=== PATIENT | female | born 1975 | race Caucasian/White ===

== ENCOUNTER 2018-02-17 19:27 | Inpatient (IN) ==
[2018-02-17] MEDS ORDERED: Ipratropium/Albuterol Neb 3 ML IH ONE (20:26)
[2018-02-17 20:54] LABS: Basophils % 0.3 %; Eosinophils # 0.4 K/mcL (0.0-0.6); Eosinophils % 3.2 %; Hemoglobin 13.3 g/dL (11.5-15.4); Immature Granulocytes % 0.6 % (0-4); Lymphocytes # 2.1 K/mcL (0.6-4.6); Lymphocytes % 18.5 %; Mean Corpuscular HGB Conc 32.4 g/dL (31.6-35.5); Mean Corpuscular Hemoglobin 29.2 pg (28.0-33.3); Mean Corpuscular Volume 89.9 fL (83.0-100.0); Mean Platelet Volume 10.8 fL (9.4-12.4); Monocytes # 0.8 K/mcL (0.0-1.3); Neutrophils # 7.9 K/mcL (1.6-8.9); Platelet Count 182 K/mcL (140-400); Red Blood Count 4.56 M/mcL (3.82-4.97); Red Cell Distribution Width 15.1 % (11.5-14.5); Segmented Neutrophils % 70.4 %
[2018-02-17] MEDS ORDERED: methylPREDNISolone 125 MG/2 ML VIAL IVP ONE (21:17)
[2018-02-17 21:32] LABS: BUN/Creatinine Ratio 8 (6-26); Blood Urea Nitrogen 7 mg/dL (6-20); Calcium 8.2 mg/dL (8.6-10.3); Carbon Dioxide 13 mEq/L (23-29); Chloride 116 mEq/L (98-107); Glucose 123 mg/dL (70-105); Osmolality,Calculated 285 (280-300); Potassium 4.2 mEq/L (3.5-5.1); Sodium 138 mEq/L (136-145); Troponin I < 0.03 ng/mL (< 0.04); eGFR For African Americans > 60 (> 60); eGFR For Non-African Americans > 60 (> 60)
--- NOTE | 2018-02-17 22:56 | Emergency Department Note ---
Disposition Clinical Impression: Acute exacerbation of chronic obstructive airways disease Chest pain Qualifiers: Chest pain type: unspecified Qualified Code(s): R07.9 - Chest pain, unspecified Disposition: Admitted As Inpatient Condition: Good Referrals: Severino Mario CNP [Primary Care Provider] - Ignacio Chacon CNP [Family Provider] - Forms: ED Satisfaction Letter Time of Disposition: 23:15 SOB HPI - General Chief Complaint: ED Shortness of Breath/Dyspnea Stated Complaint: sob/wheezing Time Seen by Provider: 02/17/18 19:39 Source: patient Limitations: no limitations Nursing Notes Reviewed: Yes Vital Signs Reviewed: Yes - History of Present Illness This is a 42 year-old female with history of HTN, asthma, COPD, and lobectomy secondary to complications of pneumonia in 2000. 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 She presents with dyspnea, which sounds chronic but worse for the past 2-3 days. She reports post-tussive emesis for the past 2 nights, and she is concerned that she might have aspirated last night or the night before. She reports wheezing, minimally productive cough, and central chest pressure for the past 2 days. She's had some chills but no measured fever. She denies leg pain/swelling. Pt Subjective Complaint: shortness of breath Onset (ago): month(s) (2) Context: anxiety Severity: moderate Consistency/Duration: gradually worsening (worse for 2-3 days) Improves with: nothing Worsens with: nothing Known history of: COPD, asthma, recurrent pneumonia Associated symptoms: Reports: cough, wheezing, sputum production. Denies: chest pain, lower extremity pain, palpitations Treatment prior to arrival: bronchodilator, other (2 rounds of antibiotics) Cough Frequency: Continuous - Related Data Allergies Allergy/AdvReac Type Severity Reaction Status Date / Time Cortisone Allergy See Verified 02/17/18 19:32 Comments doxycycline Allergy See Verified 02/17/18 19:32 Comments prednisone Allergy See Verified 02/17/18 19:32 Comments Sulfa (Sulfonamide Allergy See Verified 02/17/18 19:32 Antibiotics) Comments All systems ED: reviewed and negative except as stated. Constitutional: Reports: chills. Denies: fever Cardiovascular: Reports: as per HPI Respiratory: Reports: cough, dyspnea, wheezes Past Medical History - Past Medical History Medical history: Reports: asthma, COPD, hypertension, other Surgical history: Reports: other Psychiatric history: Reports: bipolar - Social History Smoking Status: Former smoker Smokeless Tobacco Status: No Alcohol use: Reports: none Drug use: Reports: none Physical Exam - General Limitations: no limitations General appearance: alert - Head Head exam: atraumatic, normocephalic - Eye Eye exam: Present: normal appearance - Neck Neck exam: Present: normal inspection - Respiratory Respiratory exam: Present: wheezes (scattered). Absent: respiratory distress - Cardiovascular Cardiovascular exam: Present: regular rate, normal rhythm, normal heart sounds - Abdominal Exam Abdominal exam: Present: soft, Non-Tender. Absent: distention - Extremities Exam Extremities exam: Present: normal inspection. Absent: pedal edema, calf tenderness - Neurological Exam Neurological exam: Present: alert, oriented X3. Absent: motor sensory deficit - Psychiatric Psychiatric exam: Present: normal affect, normal mood - Skin Skin exam: Present: warm, dry, intact Course - Reevaluation(s) Reevaluation #1: Discussed test results with patient. She is still feeling dyspneic and reports chest pressure, and she would like to come in for observation. Time: 23:14 - Consultations Consultation #1: Reviewed case with Dr. Hinds, and patient accepted for admission. Time: 23:34 Vital Signs Temperature 98.2 F 02/17/18 19:32 Pulse Rate 101 02/17/18 19:32 Respiratory Rate 24 02/17/18 19:32 Blood Pressure 150/100 02/17/18 19:32 O2 Sat by Pulse Oximetry 97 02/17/18 19:32 Temperature 98.4 F 02/17/18 19:51 Pulse Rate 94 02/17/18 23:16 Respiratory Rate 20 02/17/18 23:16 Blood Pressure 176/95 02/17/18 23:16 O2 Sat by Pulse Oximetry 99 02/17/18 23:16 Oxygen Delivery Oxygen Delivery Room Air Shortness of Breath/Dyspnea - Lab Data Lab results reviewed: Yes I reviewed the patient's lab results. Result diagrams: 02/17/18 20:42 02/17/18 20:42 Lab Results 02/17/18 02/17/18 02/17/18 Range/Units 20:42 20:42 20:42 WBC 11.3 H (4.3-11.1) K/mcL RBC 4.56 (3.82-4.97) M/mcL Hgb 13.3 (11.5-15.4) g/dL Hct 41.0 (35.3-44.9) % MCV 89.9 (83.0-100.0) fL MCH 29.2 (28.0-33.3) pg MCHC 32.4 (31.6-35.5) g/dL RDW 15.1 H (11.5-14.5) % Plt Count 182 (140-400) K/mcL MPV 10.8 (9.4-12.4) fL Immature Gran % 0.6 (0-4) % Seg Neutrophils % 70.4 % Lymphocytes % 18.5 % Monocytes % 7.0 % Eosinophils % 3.2 % Basophils % 0.3 % Neutrophils # 7.9 (1.6-8.9) K/mcL Lymphocytes # 2.1 (0.6-4.6) K/mcL Monocytes # 0.8 (0.0-1.3) K/mcL Eosinophils # 0.4 (0.0-0.6) K/mcL Basophils # 0.0 (0.0-0.2) K/mcL D-Dimer (0-500) ng/mLFEU Sodium 138 (136-145) mEq/L Potassium 4.2 (3.5-5.1) mEq/L Chloride 116 H (98-107) mEq/L Carbon Dioxide 13 L (23-29) mEq/L BUN 7 (6-20) mg/dL Creatinine 0.85 (0.60-1.20) mg/dL Est GFR ( Amer) > 60 (> 60) Est GFR (Non-Af Amer) > 60 (> 60) BUN/Creatinine Ratio 8 (6-26) Glucose 123 H (70-105) mg/dL Calculated Osmolality 285 (280-300) Calcium 8.2 L (8.6-10.3) mg/dL Troponin I < 0.03 (< 0.04) ng/mL B-Natriuretic Peptide 12 (Less than 100) pg/mL 02/17/18 Range/Units 20:42 WBC (4.3-11.1) K/mcL RBC (3.82-4.97) M/mcL Hgb (11.5-15.4) g/dL Hct (35.3-44.9) % MCV (83.0-100.0) fL MCH (28.0-33.3) pg MCHC (31.6-35.5) g/dL RDW (11.5-14.5) % Plt Count (140-400) K/mcL MPV (9.4-12.4) fL Immature Gran % (0-4) % Seg Neutrophils % % Lymphocytes % % Monocytes % % Eosinophils % % Basophils % % Neutrophils # (1.6-8.9) K/mcL Lymphocytes # (0.6-4.6) K/mcL Monocytes # (0.0-1.3) K/mcL Eosinophils # (0.0-0.6) K/mcL Basophils # (0.0-0.2) K/mcL D-Dimer 226 (0-500) ng/mLFEU Sodium (136-145) mEq/L Potassium (3.5-5.1) mEq/L Chloride (98-107) mEq/L Carbon Dioxide (23-29) mEq/L BUN (6-20) mg/dL Creatinine (0.60-1.20) mg/dL Est GFR ( Amer) (> 60) Est GFR (Non-Af Amer) (> 60) BUN/Creatinine Ratio (6-26) Glucose (70-105) mg/dL Calculated Osmolality (280-300) Calcium (8.6-10.3) mg/dL Troponin I (< 0.04) ng/mL B-Natriuretic Peptide (Less than 100) pg/mL - Radiology Data Radiology results reviewed: Yes I reviewed the patient's radiology results. XR/XR chest 1V portable IMPRESSION: Prominent reticular markings throughout the lungs are nonspecific and can be seen in setting of mild vascular congestion, atypical pneumonitis and/or interstitial change. No focal airspace consolidation. - EKG Data EKG attestation: Yes I reviewed and interpreted this EKG. EKG shows normal: Reports: axis, intervals, QRS complexes, ST-T waves Rate: Reports: tachycardia When compared to previous EKG there are: previous EKG unavailable Interpretation: Reports: other (no significant abnormalities)
[2018-02-17] MEDS ORDERED: Aspirin 325 MG TABLET PO ONE (23:14)
[2018-02-18] MEDS ORDERED: Ipratropium/Albuterol Neb 3 ML IH ONE (02:04)
[2018-02-18] MEDS ORDERED: Naloxone 0.4 MG/ML INJ IVP PRN (02:18)
[2018-02-18] MEDS ORDERED: Acetaminophen 325 MG TABLET PO PRN (02:18)
[2018-02-18] MEDS ORDERED: Nitroglycerin 0.4 MG TAB.SUBL SL PRN (03:19)
[2018-02-18] MEDS ORDERED: Furosemide 20 MG/2 ML VIAL IVP ONE (03:22)
[2018-02-18] MEDS ORDERED: Azithromycin 250 MG TABLET PO ONE (03:35)
--- NOTE | 2018-02-18 03:48 | Internal Med History&Physical ---
<Josi Trejo - Last Filed: 02/18/18 03:40> Date of Encounter: 02/18/18 Time of Encounter: 01:30 Internal Medicine - H&P: HPI Chief complaint: SOB Admitted From: Home Plans for Post Hospital Care: Home History of present illness: Ms. Amin is a 42 year old female with a past medical history of asthma, COPD, lobectomy secondary to pneumonia, and hypertension who presented to the ED with shortness of breath. Patient states that shortness of breath began 2 days ago with associated productive cough with green sputum. Admits to associated hemoptysis and chest pain. Patient denies travel outside of [place] or visiting a jail. Chest pain is described as sharp with each breath and achy and she is not breathing. She states that the chest pain is constant does not radiate to her neck or arm but describes it as a chest pressure. Denies associated nausea, vomiting, or sweating. She has noticed increased swelling in her feet and hands over the last 2 weeks. She was last hospitalized in September for pneumonia. Admits to chills and diffuse weakness. Denies fever, abdominal pain , diarrhea, rash. Upon admission to the ED, patient was tachycardic 101, tachypnea 24, and hypertensive 150/100. patient's initial white blood cell count was 11.3, BNP 12 , d-dimer 226, Troponin < 0.03. Chest x-ray shows prominent reticular markings which can be seen in mild vascular congestion, atypical pneumonitis, or interstitial changes. Patient was given DuoNeb 1, Solu-Medrol and Aspirin in the ED. Patient was admitted to the floor for COPD exacerbation. Past Med Surg Social Fam HX - Past Medical History Medical history: asthma, COPD, hypertension, other Psychiatric history: anxiety, bipolar, depression, panic disorder, PTSD - Past Surgical History Surgical History: other Additional surgical history: 2000- Lobectomy, R. ovary removal, tubal - Social History Smoking Status: Former smoker Smokeless Tobacco Status: No Alcohol use: none Drug use: none - Family History Father Living Status: Still Living Hx Family Cancer: Yes (Breast Ca.) Internal Medicine - H&P: Meds Alprazolam XR [Xanax Xr] 2 mg PO HS 02/18/18 [History] Benztropine [Cogentin] 1 mg PO HS 02/18/18 [History] Esomeprazole Magnesium [Nexium] 40 mg PO HS 02/18/18 [History] FLUoxetine HCl [Fluoxetine HCl] 30 mg PO HS 02/18/18 [History] Ferrous Sulfate [Iron] 325 mg PO HS 02/18/18 [History] Meloxicam [Mobic] 15 mg PO HS 02/18/18 [History] Quetiapine Fumarate [Quetiapine Fumarate ER] 800 mg PO HS 02/18/18 [History] Spironolactone [Aldactone] 50 mg PO HS 02/18/18 [History] Sucralfate [Carafate] 1 gm PO HS 02/18/18 [History] Topiramate [Topamax] 200 mg PO HS 02/18/18 [History] raNITIdine HCl [Ranitidine HCl] 300 mg PO HS 02/18/18 [History] 3 Allergy/AdvReac Type Severity Reaction Status Date / Time Cortisone Allergy See Verified 02/17/18 19:32 Comments doxycycline Allergy See Verified 02/17/18 19:32 Comments prednisone Allergy See Verified 02/17/18 19:32 Comments Sulfa (Sulfonamide Allergy See Verified 02/17/18 19:32 Antibiotics) Comments All Systems PM: A 10-system review of systems was performed and is negative for pertinent findings except as documented above in the HPI. - Constitutional Vitals: Temp Pulse Resp BP Pulse Ox 98.4 F 98 21 163/97 98 02/18/18 00:33 02/18/18 00:33 02/18/18 02:16 02/18/18 00:33 02/18/18 02:16 Exam: Constitutional: Alert, in mild acute resp distress Head: Normocephalic, atraumatic Heart: Normal, regular rate and rhythm, no murmurs Lungs: 2:1 expiratory ratio, + wheezing with auscultation and audibly, using accessory respiratory muscles Abdomen: Soft, nondistended, nontender, bowel sounds present and normal, no guarding or rigidity. Extremities: No edema in her UE or LE, No clubbing, radial pulse +2/4, capillary refill <2sec. Skin: Skin warm and dry, no lesions, no rashes, no jaundice Neurologic: Cranial nerves II through XII grossly intact, strength 5/5 in all extremitites Psych: Cooperative with exam, good eye contact, cognitive function intact, speech clear, thought process logical, and goal directed Internal Med - H&P Results - Labs CBC & Chem 7: 02/17/18 20:42 02/17/18 20:42 - Assessment and plan (1) Acute exacerbation of chronic obstructive airways disease Current Visit: Yes Status: Acute Assessment and plan: Progressive worsening of SOB with associated productive cough. Possible acute bronchitis causing exacerbation. Lasix attempted once to see if fluid overload was contributing as patient admits to new onset hand and feet swelling. Plan: - Azithromycin 1/5 days - continue oxygen support as needed - DuoNebs Q2H prn and Q4H fiordaliza - Solu-Medrol 60mg Q6H - continuous pulse ox (2) HTN (hypertension) Current Visit: Yes Status: Acute Assessment and plan: Elevated BP upon arrival with systolic BP 150. Hydralazine 10mg prn Q6H. Qualifiers: Hypertension type: essential hypertension Qualified Code(s): I10 - Essential (primary) hypertension (3) Chest pain Current Visit: Yes Status: Acute Assessment and plan: PMH of HTN, obesity, former smoker. Atypical chest pain presentation. Troponins initially <0.03 Plan: - trending troponins - continue telemetry Qualifiers: Chest pain type: unspecified Qualified Code(s): R07.9 - Chest pain, unspecified (4) Asthma Current Visit: Yes Status: Acute Assessment and plan: Asthma could also be playing a role especially with the increased humidity and temperature over the last 2 days. See plan above. Qualifiers: Asthma severity: severe Asthma persistence: persistent Asthma complication type: unspecified Qualified Code(s): J45.50 - Severe persistent asthma, uncomplicated (5) DVT prophylaxis Current Visit: Yes Status: Acute Assessment and plan: Heparin SQ - Time Spent With Patient Total time spent is greater than 50% in coordination of care (as documented) at patient's floor/unit and/or counseling patient: <Rosalie Martin - Last Filed: 02/18/18 06:51> Date of Encounter: 02/18/18 Internal Medicine - H&P: HPI History of present illness: Ms. Amin is a 42 year old female All Systems PM: A 10-system review of systems was performed and is negative for pertinent findings except as documented above in the HPI. - Constitutional Vitals: Temp Pulse Resp BP Pulse Ox 98.3 F 108 20 108/56 95 02/18/18 04:03 02/18/18 04:03 02/18/18 04:03 02/18/18 04:03 02/18/18 04:03 Internal Med - H&P Results - Labs CBC & Chem 7: 02/18/18 03:31 02/18/18 03:31 Labs: Short CBC 02/18/18 Range/Units 03:31 WBC 10.8 (4.3-11.1) K/mcL Hgb 13.3 (11.5-15.4) g/dL Hct 41.4 (35.3-44.9) % Plt Count 171 (140-400) K/mcL Neutrophils # 10.0 H (1.6-8.9) K/mcL BMP 02/18/18 03:31 Sodium 137 Potassium 3.2 L Chloride 113 H Carbon Dioxide 11 L BUN 8 Creatinine 0.87 Glucose 221 H Calcium 8.2 L Cardiac Enzymes 02/18/18 Range/Units 03:31 Troponin I < 0.03 (< 0.04) ng/mL - Attending Attestation I have seen and examined this patient independently. I have discussed with resident physician Dr. Trejo regarding the management plan. Agree with the documentation. - Assessment and plan (1) Acute exacerbation of chronic obstructive airways disease Current Visit: Yes Status: Acute (2) Chest pain Current Visit: Yes Status: Acute Qualifiers: Chest pain type: unspecified Qualified Code(s): R07.9 - Chest pain, unspecified (3) Asthma Current Visit: Yes Status: Acute Qualifiers: Asthma severity: severe Asthma persistence: persistent Asthma complication type: unspecified Qualified Code(s): J45.50 - Severe persistent asthma, uncomplicated (4) HTN (hypertension) Current Visit: Yes Status: Acute Qualifiers: Hypertension type: essential hypertension Qualified Code(s): I10 - Essential (primary) hypertension (5) DVT prophylaxis Current Visit: Yes Status: Acute - Time Spent With Patient Total time spent is greater than 50% in coordination of care (as documented) at patient's floor/unit and/or counseling patient:
[2018-02-18 03:52] LABS: Basophils % 0.1 %; Eosinophils % 0.1 %; Hematocrit 41.4 % (35.3-44.9); Hemoglobin 13.3 g/dL (11.5-15.4); Immature Granulocytes % 0.6 % (0-4); Immature Platelets 3.7 % (1.1-6.1); Lymphocytes # 0.7 K/mcL (0.6-4.6); Lymphocytes % 6.4 %; Mean Corpuscular HGB Conc 32.1 g/dL (31.6-35.5); Mean Corpuscular Hemoglobin 29.1 pg (28.0-33.3); Mean Corpuscular Volume 90.6 fL (83.0-100.0); Mean Platelet Volume 10.8 fL (9.4-12.4); Monocytes % 0.4 %; Platelet Count 171 K/mcL (140-400); Red Blood Count 4.57 M/mcL (3.82-4.97); Segmented Neutrophils % 92.4 %
[2018-02-18 04:10] LABS: BUN/Creatinine Ratio 9 (6-26); Blood Urea Nitrogen 8 mg/dL (6-20); Calcium 8.2 mg/dL (8.6-10.3); Carbon Dioxide 11 mEq/L (23-29); Chloride 113 mEq/L (98-107); Glucose 221 mg/dL (70-105); Magnesium 1.7 mg/dL (1.6-2.6); Osmolality,Calculated 289 (280-300); Phosphorous 1.5 mg/dL (2.7-4.5); Potassium 3.2 mEq/L (3.5-5.1); Sodium 137 mEq/L (136-145); eGFR For African Americans > 60 (> 60); eGFR For Non-African Americans > 60 (> 60)
[2018-02-18] MEDS ORDERED: Ipratropium/Albuterol Neb 3 ML IH PRN (04:24)
[2018-02-18] MEDS: *HR* Heparin 5,000 UNIT/ML VIAL SQ SCH ×2 (05:43→17:21)
[2018-02-18] MEDS ORDERED: methylPREDNISolone 125 MG/2 ML VIAL IVP SCH ×2 (06:00→08:00)
[2018-02-18] MEDS ORDERED: ALPRAZolam 0.5 MG TABLET PO SCH (06:00)
[2018-02-18] MEDS: Ipratropium/Albuterol Neb 3 ML IH SCH ×2 (07:41→07:44)
--- NOTE | 2018-02-18 08:40 | Event Note ---
<Joao Nagel - Last Filed: 02/18/18 13:22> Date of Encounter: 02/18/18 Time of Encounter: 08:29 Subjective: Patient seen and examined sitting up in bed eating breakfast. Patient denies further hemoptysis. She reports dry cough and remains on 2L O2 via NC with SpO2 97%. Her HR is 115 and she remains on telemetry monitoring. CT chest was performed this AM. Patient denies fever, N/V/D, dysuria, or leg edema. Objective: Last Vital Signs Temp 98.1 F 02/18/18 06:51 Pulse 102 02/18/18 06:51 Resp 17 02/18/18 07:45 BP 121/81 02/18/18 06:51 Pulse Ox 99 02/18/18 07:45 Exam: Constitutional: Alert, mild distress, morbidly obese Head: Normocephalic, atraumatic Heart: Normal, regular rate and rhythm, no murmurs Lungs: wheezing, using accessory respiratory muscles, mild respiratory distress , on 2L supplemental O2 Abdomen: Soft, nondistended, nontender, bowel sounds present and normal, no guarding or rigidity. Extremities: No edema in UE or LE, No clubbing, radial pulse +2/4, capillary refill < 2sec. Skin: Skin warm and dry, no lesions, no rashes, no jaundice Neurologic: Cranial nerves II through XII grossly intact, strength 5/5 in all extremitites Psych: Cooperative with exam, good eye contact, cognitive function intact, speech clear, thought process logical, and goal directed 02/18/18 08:35 ABG pH 7.35 ABG pCO2 22 L ABG pO2 127 H ABG HCO3 12 L ABG Total CO2 13 L ABG O2 Saturation 99 H ABG Base Excess -11 L Assessment and plan (1) Interstitial Pneumonia Current Visit: Yes Status: Acute Assessment and plan: Progressive worsening of SOB with associated productive cough and hemoptysis. Possible acute bronchitis causing exacerbation. Previous history of fibrotic lung disease status post resection, resection was negative for caseating granulomas or infectious process. Outpatient pulmonology notes reviewed, 12/19/17 BAL with cytopathology negative for malignancy Plan: - Azithromycin given in ED - Switched to Rocephin IV - Resp infection panel pending - CT chest revealed stable postsurgical and post therapeutic changes in the right chest with prior history of partial pneumonectomy. No acute abnormality or interval change to correlate to provided clinical symptoms. - Switched DuoNebs to Xopenex and Ipratropium Q4H due to tachycardia - Continue Solu-Medrol 60mg Q6H (patient is allergic to Prednisone) - Continue supplemental oxygen, continuous pulse ox - Pulmonology consulted (2) Non-anion Gap Metabolic Acidosis Current Visit: Yes Status: Acute Assessment and plan: Anion gap 13 CO3 level 11 on BMP ABG reveals Primary metabolic acidosis, with superimposed respiratory alkalosis Urine pH 6.0 Urine electrolytes pending, consider RTA type 1 as likely etiology Start 1/2 NS IVF Hold Diuretics Repeat BMP later this afternoon (3) HTN (hypertension) Current Visit: Yes Status: Acute Assessment and plan: Elevated BP upon arrival with systolic BP 150. Hydralazine 10mg prn Q6H. Qualifiers: Hypertension type: essential hypertension Qualified Code(s): I10 - Essential (primary) hypertension (4) Chest pain Current Visit: Yes Status: Acute Assessment and plan: PMH of HTN, obesity, former smoker. Atypical chest pain presentation. Serial Troponins <0.03 x3 Plan: - continue telemetry - likely plueritic chest pain due to cough Qualifiers: Chest pain type: unspecified Qualified Code(s): R07.9 - Chest pain, unspecified (5) COPD exacerbation Current Visit: Yes Status: Acute Assessment and plan: See plan above. (6) Morbid obesity Current Visit: Yes Status: Chronic Assessment and plan: BMI 45.7 Lifestyle modification. (7) Hypokalemia Current Visit: Yes Status: Chronic Assessment and plan: Supplement K Continue to monitor (8) Hypophosphatemia Current Visit: Yes Status: Chronic Assessment and plan: Supplement Phos Continue to monitor (9) DVT prophylaxis Current Visit: Yes Status: Acute Assessment and plan: Heparin SQ Plan discussed with and agreed upon with Dr. Avelar <Saulo Avelar - Last Filed: 02/18/18 16:48> Date of Encounter: 02/18/18 I examined this patient and my medical decision-making was reviewed with the Resident Physician Dr. Nagel. I agree with the documented findings, disposition and treatment plan as described except to the extent set forth below. Ms. Amin is a 42 year old female with a past medical history of asthma, COPD, lobectomy secondary to pneumonia, and hypertension who presented to the ED with shortness of breath. Patient states that shortness of breath began 2 days ago with associated productive cough with green sputum. Her CXR showed atypical pneumonitis. Pt got admitted in the hospital and started on empirical abx Rocephin and Azithromycin. Gen: A, A, O x3 Chest: Diminished BS b/l, moderate wheezing Heart: S1S2+ a/p 1. Acute hypoxic resp distress 2. Acute COPD exacerbation 3. Acute pneumonitis - mostly bacterial cont Rocephin + Azithromcyin Duoneb IV steroids 4. Non aniongap metabolic acidosis 5. Renal tubular acidosis Could be hypovolemic and Aldactone induced too Held Aldactone close monitoring of BMP / Hco2 IV hydration
[2018-02-18 08:41] LABS: ABG Base Excess -11 mEq/L (-2 to 3); ABG HCO3 12 mEq/L (21-27); ABG Oxygen Saturation 99 % (95-98); ABG PCO2 22 mmHg (35-45); ABG PH 7.35 pH Units (7.32-7.45); ABG PO2 127 mmHg (85-104); ABG TCO2 13 mEq/L (20-26)
[2018-02-18] MEDS ORDERED: NON-FORMULARY MEDICATION 1 EACH EACH (Omeprazole [Prilosec] 40 MG) PO SCH (09:00)
[2018-02-18] MEDS: cefTRIAXone 2,000 MG in 0.9 % Sodium Chloride Mini Bag 100 ML IVPB SCH (09:53)
[2018-02-18] MEDS: Levalbuterol Neb 1.25 MG/3 ML IH SCH ×3 (10:48→21:33)
[2018-02-18] MEDS: Ipratropium Neb 0.5 MG NEBULIZER IH SCH ×3 (10:48→21:33)
[2018-02-18 10:49] LABS: Bilirubin,Urine Negative (Negative); Blood,Urine Negative (Negative); Clarity,Urine Clear (Clear); Color,Urine Yellow (Yellow); Glucose,Urine (UA) Normal (Normal); Ketones,Urine Negative (Negative); Leukocyte Esterase,Urine Moderate (Negative); Nitrite,Urine Negative (Negative); Protein,Urine Trace mg/dL (Neg-Trace); Specific Gravity,Urine 1.016 (1.010-1.025); Urobilinogen,Urine Normal (Normal)
[2018-02-18 11:00] LABS: Potassium,Urine 36.5 mEq/L; Sodium, Urine 69.6 mEq/L
[2018-02-18 11:07] LABS: Bacteria,Urine None Seen per hpf (None-Few); Hyaline Casts,Urine None Seen per lpf (None-Few); Squamous Epithelial Cell,Urine Many per lpf (None-Few)
--- NOTE | 2018-02-18 12:32 | Electrocardiograph Report ---
[address] [address] Test Date: 2018-02-17 Pat Name: Cate Amin Department: 103 Room: [facility] Gender: F Mult[employer] Operator: BIBI : 1975 Requested By: Jesu Duque Order Number: [id number] Reading MD: Alvaro Gamboa Measurements Intervals [place] Rate: 102 P: 38 DC: 167 QRS: 25 QRSD: 80 T: 35 QT: 332 QTc: 391 Interpretive Statements SINUS TACHYCARDIA LOW QRS VOLTAGE IN PRECORDIAL LEADS Electronically Signed On 02-18-2018 12:31:42 EDT by Alvaro Gamboa
[2018-02-18] MEDS: methylPREDNISolone 125 MG/2 ML VIAL IVP SCH ×2 (12:56→17:21)
--- NOTE | 2018-02-18 14:24 | Pulmonology Consult Note ---
<Hoa Maya M - Last Filed: 02/18/18 17:49> Date of Encounter: 02/18/18 Medications and Allergies Alprazolam XR [Xanax Xr] 2 mg PO HS 02/18/18 [History] Benztropine [Cogentin] 1 mg PO HS 02/18/18 [History] Ergocalciferol (VITAMIN D2) [Vitamin D2] 50,000 unit PO QWEEK 02/18/18 [History] Esomeprazole Magnesium [Nexium] 40 mg PO HS 02/18/18 [History] FLUoxetine HCl [Fluoxetine HCl] 30 mg PO HS 02/18/18 [History] Ferrous Sulfate [Iron] 325 mg PO HS 02/18/18 [History] Fluticasone/Vilanterol [Breo Ellipta 100-25 Mcg INH] 1 puff IH DAILY 02/18/18 [ History] Meloxicam [Mobic] 15 mg PO HS 02/18/18 [History] Montelukast [Singulair] 10 mg PO DAILY 02/18/18 [History] Omeprazole [PriLOSEC] 40 mg PO DAILY 02/18/18 [History] Quetiapine Fumarate [Quetiapine Fumarate ER] 800 mg PO HS 02/18/18 [History] Spironolactone [Aldactone] 50 mg PO HS 02/18/18 [History] Sucralfate [Carafate] 1 gm PO HS 02/18/18 [History] Topiramate [Topamax] 200 mg PO HS 02/18/18 [History] raNITIdine HCl [Ranitidine HCl] 300 mg PO HS 02/18/18 [History] 3 Allergy/AdvReac Type Severity Reaction Status Date / Time Cortisone Allergy See Verified 02/18/18 07:57 Comments doxycycline Allergy See Verified 02/18/18 07:57 Comments prednisone Allergy See Verified 02/18/18 07:57 Comments Sulfa (Sulfonamide Allergy See Verified 02/18/18 07:57 Antibiotics) Comments All Systems: The remainder of the systems were reviewed and are negative Physical Examination Vital Signs: Vital Signs, Last 4 Hours Temp Pulse Resp BP Pulse Ox 02/18/18 15:42 22 94 02/18/18 15:40 98.3 F 106 18 148/79 98 Results - Laboratory Findings CBC and BMP: 02/18/18 03:31 02/18/18 15:41 ABG ABG pH 7.35 pH Units (7.32-7.45) 02/18/18 08:35 ABG pCO2 22 mmHg (35-45) L 02/18/18 08:35 ABG pO2 127 mmHg (85-104) H 02/18/18 08:35 ABG O2 Saturation 99 % (95-98) H 02/18/18 08:35 PT/INR, D-dimer D-Dimer 226 ng/mLFEU (0-500) 02/17/18 20:42 Abnormal lab findings: Abnormal lab results RDW 15.0 % (11.5-14.5) H 02/18/18 03:31 Neutrophils # 10.0 K/mcL (1.6-8.9) H 02/18/18 03:31 ABG pCO2 22 mmHg (35-45) L 02/18/18 08:35 ABG pO2 127 mmHg (85-104) H 02/18/18 08:35 ABG HCO3 12 mEq/L (21-27) L 02/18/18 08:35 ABG Total CO2 13 mEq/L (20-26) L 02/18/18 08:35 ABG O2 Saturation 99 % (95-98) H 02/18/18 08:35 ABG Base Excess -11 mEq/L (-2 to 3) L 02/18/18 08:35 Chloride 113 mEq/L (98-107) H 02/18/18 15:41 Carbon Dioxide 15 mEq/L (23-29) L 02/18/18 15:41 Glucose 231 mg/dL (70-105) H 02/18/18 15:41 Phosphorus 1.5 mg/dL (2.7-4.5) L 02/18/18 03:31 Ur Leukocyte Esterase Moderate (Negative) H 02/18/18 10:08 Urine Microscopic RBC 5-15 per hpf (0-3) H 02/18/18 10:08 Urine Microscopic WBC 5-15 per hpf (0-3) H 02/18/18 10:08 Ur Squamous Epith Cells Many per lpf (None-Few) H 02/18/18 10:08 Ur Culture Indicated? NO. (NO) A 02/18/18 10:08 - Clinical Findings Intake & Output: Intake & Output 02/18/18 02/18/18 02/18/18 07:59 15:59 23:59 Intake Total 240 / 240 Balance 240 / 240 Consult Discharge Plan - Plan Referrals: Severino Mario, D[employer] OPERATOR [Primary Care Provider] - Ignacio Chacon CNP [Family Provider] - - Attending Attestation I examined this patient and my medical decision-making was reviewed with the Resident Physician. I agree with the documented findings, disposition and treatment plan as described except to the extent set forth below. Patient seen and examined. Labs, radiology, chart personally reviewed. Agree with resident's history and physical, assessment, plan with following comments: MANAGER DATABASE: Patient follows commands, Pulmonary: Acceptable oxygenation and ventilation. Patient continued to have shortness of breath which is out of proportion to the imaging finding and she has been fully worked up including bronchoscopy as outpatient and also has been evaluated by Dr. Decker as outpatient, however patient continued to have shortness of breath. This is reasonable to treat the patient on bronchodilators and empiric antibiotic as well as systemic steroid. Patient examination is unremarkable lung findings other than previous surgery that she had. I have explained to her if she continued to have dyspnea with no clear etiology then she will need to be evaluated in another center which they have cardiopulmonary exercise testing and a second opinion. She understand that and to have told her whenever she feels stable enough this can be done even as outpatient. Thank you for the consultation <Katherine Lorenoz - Last Filed: 02/18/18 23:23> Date of Encounter: 02/18/18 Time of Encounter: 14:24 Assessment and Plan (1) Fibrotic lung diseases Current Visit: Yes Status: Chronic Thorough work-up in the past, including bronchoscopy and evaluation by Dr. Decker Patient's physical exam was unremarkable and her symptoms are out of proportion to findings on imaging CT chest shows: stable post-surgical and post-therapeutic changes for h/o partial pneumonectomy; no acute abnormalities or interval changes Oxygenation and ventilation have been satisfactory; maintaining SpO2 in high 90' s with 2 L nasal cannula If pt continues to have dyspnea without a clear etiology, further evaluation should be done at a tertiary care center for a second opinion Current treatment with bronchodilators, steroids, and empiric antibiotics is reasonable History of Present Illness Consult date: 02/18/18 Reason for consult: dyspnea History of present illness: Ms. Amin is a 42 year-old female with h/o asthma, COPD, fibrotic lung disease, and partial pneumonectomy of right lung who presented to the ED with c/o shortness of breath. Her dyspnea began 2 days ago and was accompanied by a cough , which produced green sputum. She admits to hemoptysis with amount ranging between the size of a pencil eraser to streaks of blood. She reports right- sided chest pain that is equivocal during respiration and is worse with coughing. She cannot reproduce her chest pain by pressing on the area. Denies associated N/V, fevers, or abdominal pain but admits to chills and generalized weakness. Patients most recent hospitalization was September 2017 for PNA. The patient and her history is well known to pulmonology at [facility]. She is a clinic patient of Dr. Gonzalez. Past Med Surg Social Fam HX - Past Medical History Medical history: asthma, COPD, hypertension, other Psychiatric history: anxiety, bipolar, depression, panic disorder, PTSD - Past Surgical History Surgical History: other Additional surgical history: 2000- Lobectomy, R. ovary removal, tubal - Social History Smoking Status: Former smoker Smokeless Tobacco Status: No Alcohol use: none Drug use: none - Family History Father Living Status: Still Living Hx Family Cancer: Yes (Breast Ca.) All Systems: The remainder of the systems were reviewed and are negative - Constitutional Constitutional: as per HPI - Cardiovascular Cardiovascular: as per HPI, edema - Respiratory Respiratory: as per HPI, wheezing - Gastrointestinal Gastrointestinal: as per HPI, other (denies constipation), no diarrhea, no nausea, no vomiting Physical Examination Vital Signs: Vital Signs, Last 4 Hours Temp Pulse Resp BP Pulse Ox 02/18/18 10:57 98.9 F 110 18 134/89 97 02/18/18 10:49 17 98 General appearance: no acute distress, alert Effort: mildly labored, other (2L nasal cannula) Auscultation: bilateral: wheezes (faint), rhonchi (faint) Cardiovascular: regular rate and rhythm Gastrointestinal: non-distended, other (obese) Integumentary: normal Extremities: no cyanosis, no edema, no clubbing normal mental status, non-focal exam, pupils equal and round mood appropriate, affect normal Results - Laboratory Findings CBC and BMP: 02/18/18 03:31 02/18/18 15:41 ABG ABG pH 7.35 pH Units (7.32-7.45) 02/18/18 08:35 ABG pCO2 22 mmHg (35-45) L 02/18/18 08:35 ABG pO2 127 mmHg (85-104) H 02/18/18 08:35 ABG O2 Saturation 99 % (95-98) H 02/18/18 08:35 PT/INR, D-dimer D-Dimer 226 ng/mLFEU (0-500) 02/17/18 20:42 Abnormal lab findings: Abnormal lab results RDW 15.0 % (11.5-14.5) H 02/18/18 03:31 Neutrophils # 10.0 K/mcL (1.6-8.9) H 02/18/18 03:31 ABG pCO2 22 mmHg (35-45) L 02/18/18 08:35 ABG pO2 127 mmHg (85-104) H 02/18/18 08:35 ABG HCO3 12 mEq/L (21-27) L 02/18/18 08:35 ABG Total CO2 13 mEq/L (20-26) L 02/18/18 08:35 ABG O2 Saturation 99 % (95-98) H 02/18/18 08:35 ABG Base Excess -11 mEq/L (-2 to 3) L 02/18/18 08:35 Potassium 3.2 mEq/L (3.5-5.1) L 02/18/18 03:31 Chloride 113 mEq/L (98-107) H 02/18/18 03:31 Carbon Dioxide 11 mEq/L (23-29) L 02/18/18 03:31 Glucose 221 mg/dL (70-105) H 02/18/18 03:31 Calcium 8.2 mg/dL (8.6-10.3) L 02/18/18 03:31 Phosphorus 1.5 mg/dL (2.7-4.5) L 02/18/18 03:31 Ur Leukocyte Esterase Moderate (Negative) H 02/18/18 10:08 Urine Microscopic RBC 5-15 per hpf (0-3) H 02/18/18 10:08 Urine Microscopic WBC 5-15 per hpf (0-3) H 02/18/18 10:08 Ur Squamous Epith Cells Many per lpf (None-Few) H 02/18/18 10:08 Ur Culture Indicated? NO. (NO) A 02/18/18 10:08
[2018-02-18 16:14] LABS: BUN/Creatinine Ratio 11 (6-26); Blood Urea Nitrogen 10 mg/dL (6-20); Calcium 8.6 mg/dL (8.6-10.3); Carbon Dioxide 15 mEq/L (23-29); Chloride 113 mEq/L (98-107); Glucose 231 mg/dL (70-105); Osmolality,Calculated 290 (280-300); Potassium 3.9 mEq/L (3.5-5.1); Sodium 137 mEq/L (136-145); eGFR For African Americans > 60 (> 60); eGFR For Non-African Americans > 60 (> 60)
[2018-02-18 16:15] LABS: Troponin I < 0.03 ng/mL (< 0.04)
[2018-02-18] MEDS: Famotidine 20 MG TABLET PO SCH (20:58)
[2018-02-18] MEDS: FLUoxetine HCl 10 MG CAPSULE PO SCH (20:58)
[2018-02-18] MEDS: Sucralfate 1 GM TABLET PO SCH (20:58)
[2018-02-18] MEDS ORDERED: ALPRAZolam 1 MG TABLET PO SCH (21:00)
[2018-02-19] MEDS: methylPREDNISolone 125 MG/2 ML VIAL IVP SCH ×5 (00:13→23:48)
[2018-02-19 01:54] LABS: Basophils % 0.2 %; Hematocrit 40.5 % (35.3-44.9); Hemoglobin 12.8 g/dL (11.5-15.4); Immature Granulocytes % 0.8 % (0-4); Lymphocytes % 5.1 %; Mean Corpuscular HGB Conc 31.6 g/dL (31.6-35.5); Mean Corpuscular Hemoglobin 28.5 pg (28.0-33.3); Mean Corpuscular Volume 90.2 fL (83.0-100.0); Mean Platelet Volume 10.8 fL (9.4-12.4); Monocytes # 0.7 K/mcL (0.0-1.3); Monocytes % 3.8 %; Neutrophils # 17.5 K/mcL (1.6-8.9); Platelet Count 219 K/mcL (140-400); Red Blood Count 4.49 M/mcL (3.82-4.97); Red Cell Distribution Width 15.5 % (11.5-14.5); Segmented Neutrophils % 90.1 %
[2018-02-19 02:14] LABS: Phosphorous 1.9 mg/dL (2.7-4.5)
[2018-02-19 02:39] LABS: Alanine Aminotransferase 11 Units/L (7-52); Albumin 3.9 g/dL (3.5-5.7); Albumin/Globulin Ratio 1.3 (1.1-2.2); Alkaline Phosphatase 88 Units/L (34-104); Aspartate Amino Transferase 9 Units/L (13-39); BUN/Creatinine Ratio 14 (6-26); Bilirubin,Total 0.2 mg/dL (0.3-1.0); Blood Urea Nitrogen 11 mg/dL (6-20); Calcium 8.6 mg/dL (8.6-10.3); Carbon Dioxide 15 mEq/L (23-29); Chloride 116 mEq/L (98-107); Glucose 167 mg/dL (70-105); Osmolality,Calculated 289 (280-300); Potassium 4.4 mEq/L (3.5-5.1); Sodium 138 mEq/L (136-145); Total Protein 6.9 g/dL (6.4-8.9); eGFR For African Americans > 60 (> 60); eGFR For Non-African Americans > 60 (> 60)
[2018-02-19] MEDS: Levalbuterol Neb 1.25 MG/3 ML IH SCH ×4 (04:32→22:15)
[2018-02-19] MEDS: Ipratropium Neb 0.5 MG NEBULIZER IH SCH ×7 (04:32→22:22)
[2018-02-19] MEDS: *HR* Heparin 5,000 UNIT/ML VIAL SQ SCH ×2 (06:16→18:12)
[2018-02-19] MEDS: cefTRIAXone 2,000 MG in 0.9 % Sodium Chloride Mini Bag 100 ML IVPB SCH (08:49)
[2018-02-19] MEDS: Azithromycin 250 MG TABLET PO SCH (08:49)
--- NOTE | 2018-02-19 08:54 | Internal Med Progress Note ---
<Joao Nagel - Last Filed: 02/19/18 11:44> Date of Encounter: 02/19/18 Time of Encounter: 08:51 - Assessment and plan (1) Acute pneumonitis Current Visit: Yes Status: Acute Assessment and plan: Azithromycin and Rocephin IV (Day 2) Resp infection panel pending CT chest revealed stable postsurgical and post therapeutic changes in the right chest with prior history of partial pneumonectomy. No acute abnormality or interval change to correlate to provided clinical symptoms. Switched DuoNebs to Xopenex and Ipratropium Q4H due to tachycardia Continue Solu-Medrol 60mg Q6H (patient is allergic to Prednisone) Continue supplemental oxygen, continuous pulse ox (2) Fibrotic lung diseases Current Visit: Yes Status: Chronic Assessment and plan: Pulmonology following, if she continues to have dyspnea with no clear etiology then she will need to be evaluated in another center where they have cardiopulmonary exercise testing and a second opinion, this can be done as an outpatient. (3) Acute and chronic respiratory failure with hypoxia Current Visit: Yes Status: Acute Assessment and plan: Patient with acute respiratory distress on exam, RA pulse ox <88% without supplemental oxygen Plan home O2 qualification study prior to discharge (4) Acute exacerbation of chronic obstructive airways disease Current Visit: Yes Status: Acute Assessment and plan: continue oxygen support, antibiotics, bronchdilators, Solu-Medrol 60mg Q6H - continuous pulse ox (5) Asthma Current Visit: Yes Status: Acute Qualifiers: Asthma severity: severe Asthma persistence: persistent Asthma complication type: unspecified Qualified Code(s): J45.50 - Severe persistent asthma, uncomplicated (6) Chest pain Current Visit: Yes Status: Acute Assessment and plan: PMH of HTN, obesity, former smoker. Atypical chest pain presentation. Troponins initially <0.03 - continue telemetry Qualifiers: Chest pain type: unspecified Qualified Code(s): R07.9 - Chest pain, unspecified (7) HTN (hypertension) Current Visit: Yes Status: Acute Assessment and plan: Elevated BP upon arrival with systolic BP 150. Hydralazine 10mg prn Q6H. Qualifiers: Hypertension type: essential hypertension Qualified Code(s): I10 - Essential (primary) hypertension (8) Renal tubular acidosis type I Current Visit: Yes Status: Acute Assessment and plan: Could be hypovolemic and Aldactone induced too Held Aldactone Close monitoring of BMP / Hco2 IV hydration (9) Metabolic acidosis with respiratory alkalosis Current Visit: Yes Status: Acute Assessment and plan: Anion gap 7 CO3 level 15 on BMP ABG reveals Primary metabolic acidosis, with superimposed respiratory alkalosis Urine pH 6.0 Urine electrolytes pending, consider RTA type 1 as likely etiology 1/2 NS IVF Hold Diuretics (10) Hypokalemia Current Visit: Yes Status: Resolved Assessment and plan: Continue to monitor (11) Hypophosphatemia Current Visit: Yes Status: Acute Assessment and plan: Supplement Phos Continue to monitor (12) Morbid obesity with BMI of 45.0-49.9, adult Current Visit: Yes Status: Acute Assessment and plan: BMI 45.7 Lifestyle modification. (13) DVT prophylaxis Current Visit: Yes Status: Acute Assessment and plan: Heparin SQ (14) Bipolar 1 disorder Current Visit: Yes Status: Acute Assessment and plan: Continue home meds - Time Spent With Patient Total time spent is greater than 50% in coordination of care (as documented) at patient's floor/unit and/or counseling patient: - Subjective Interval history: Patient seen and examined resting comfortably in bed. Patient reports green sputum production today. SOB is improved with supplemental O2. Patient encouraged to use incentive spirometry. Patient refuses transfer to another facility at this time. - Constitutional Vitals: Temp Pulse Resp BP Pulse Ox 97.9 F 91 17 144/98 97 02/19/18 07:50 02/19/18 07:50 02/19/18 07:50 02/19/18 07:50 02/19/18 07:50 General appearance: Present: cooperative, A&O X 3, morbidly obese, pleasant, no acute distress, answers questions appropriately - Head Head exam: Present: atraumatic, normocephalic - Eye Eye exam: Present: PERRL, conjuntiva pink, sclera anicteric Pupils: Present: PERRL - ENT ENT exam: Present: mucous membranes moist, normal oropharynx - Neck Neck exam general surgery: Present: supple, trachea midline. Absent: lymphadenopathy - Respiratory Respiratory exam: Present: decreased breath sounds (RLL). Absent: accessory muscle use, CTAB, rales, rhonchi, wheezes - Cardiovascular Cardiovascular exam: Present: RRR, +S1, +S2. Absent: diastolic murmur, gallop, rubs, systolic murmur - GI/Abdominal GI/Abdominal exam: Present: normal bowel sounds, soft, no peritoneal signs. Absent: distended, tenderness - Extremities Exam Extremities exam: Present: warm, radial pulses palpable and symmetrical. Absent : calf tenderness, cyanotic, pedal edema - Back Exam Back exam: Present: normal inspection. Absent: paraspinal tenderness, tenderness - Neurological Exam Neurological exam: Present: CN II-XII intact, oriented X3, no focal deficits. Absent: pronater drift, facial droop, speech deficit - Psychiatric Psychiatric exam: Present: normal affect, normal mood - Skin Skin exam: Present: dry, intact Internal Medicine: Result - Labs CBC & Chem 7: 02/19/18 01:40 02/19/18 01:40 Labs: Short CBC 02/19/18 Range/Units 01:40 WBC 19.4 H D (4.3-11.1) K/mcL Hgb 12.8 (11.5-15.4) g/dL Hct 40.5 (35.3-44.9) % Plt Count 219 (140-400) K/mcL Neutrophils # 17.5 H (1.6-8.9) K/mcL BMP 02/18/18 02/19/18 15:41 01:40 Sodium 137 138 Potassium 3.9 4.4 Chloride 113 H 116 H Carbon Dioxide 15 L 15 L BUN 10 11 Creatinine 0.90 0.79 Glucose 231 H 167 H Calcium 8.6 8.6 Cardiac Enzymes 02/18/18 02/18/18 Range/Units 09:45 15:41 Troponin I < 0.03 < 0.03 (< 0.04) ng/mL Liver Function 02/19/18 Range/Units 01:40 Total Bilirubin 0.2 L (0.3-1.0) mg/dL AST 9 L (13-39) Units/L ALT 11 (7-52) Units/L Alkaline Phosphatase 88 (34-104) Units/L Albumin 3.9 (3.5-5.7) g/dL Urine 02/18/18 Range/Units 10:08 Urine Color Yellow (Yellow) Urine Clarity Clear (Clear) Urine pH 6.0 (5.0-8.0) pH Units Ur Specific [place] 1.016 (1.010-1.025) Urine Protein Trace (Neg-Trace) mg/dL Urine Glucose (UA) Normal (Normal) mg/dL - ABG Interpretation ABG results: ABG ABG pH 7.35 pH Units (7.32-7.45) 02/18/18 08:35 ABG pCO2 22 mmHg (35-45) L 02/18/18 08:35 ABG pO2 127 mmHg (85-104) H 02/18/18 08:35 ABG O2 Saturation 99 % (95-98) H 02/18/18 08:35 PT/INR, D-dimer D-Dimer 226 ng/mLFEU (0-500) 02/17/18 20:42 - Pulse Oximetry Interpretation Digit-Finger Pulse Oximetry Readin (On 2L O2 via NC) - Impressions Impressions Chest CT 02/18/18 08:16 IMPRESSION: 1. Stable postsurgical and post therapeutic changes in the right chest with prior history of partial pneumonectomy. 2. No acute abnormality or interval change to correlate to provided clinical symptoms. D/ / Canelo Boykin MD / Canelo Boykin MD Interpreting Provider: Canelo Boykin MD Consult Discharge Plan - Plan Referrals: Ignacio Chacon CNP [Family Provider] - Severino Mario CNP [Primary Care Provider] - <Saulo Avelar - Last Filed: 02/19/18 13:10> Date of Encounter: 02/19/18 - Assessment and plan (1) Acute exacerbation of chronic obstructive airways disease Current Visit: Yes Status: Acute (2) Chest pain Current Visit: Yes Status: Acute Qualifiers: Chest pain type: unspecified Qualified Code(s): R07.9 - Chest pain, unspecified (3) Asthma Current Visit: Yes Status: Acute Qualifiers: Asthma severity: severe Asthma persistence: persistent Asthma complication type: unspecified Qualified Code(s): J45.50 - Severe persistent asthma, uncomplicated (4) HTN (hypertension) Current Visit: Yes Status: Acute Qualifiers: Hypertension type: essential hypertension Qualified Code(s): I10 - Essential (primary) hypertension (5) DVT prophylaxis Current Visit: Yes Status: Acute (6) Fibrotic lung diseases Current Visit: Yes Status: Chronic (7) Acute and chronic respiratory failure with hypoxia Current Visit: Yes Status: Acute (8) Metabolic acidosis with respiratory alkalosis Current Visit: Yes Status: Acute (9) Acute pneumonitis Current Visit: Yes Status: Acute (10) Renal tubular acidosis type I Current Visit: Yes Status: Acute (11) Hypokalemia Current Visit: Yes Status: Resolved (12) Hypophosphatemia Current Visit: Yes Status: Acute (13) Morbid obesity with BMI of 45.0-49.9, adult Current Visit: Yes Status: Acute (14) Bipolar 1 disorder Current Visit: Yes Status: Acute - Time Spent With Patient Total time spent is greater than 50% in coordination of care (as documented) at patient's floor/unit and/or counseling patient: - Constitutional Vitals: Temp Pulse Resp BP Pulse Ox 97.7 F 89 17 132/81 97 02/19/18 11:52 02/19/18 11:52 02/19/18 11:52 02/19/18 11:52 02/19/18 11:52 Internal Medicine: Result - Labs CBC & Chem 7: 02/19/18 01:40 02/19/18 01:40 Labs: Short CBC 02/19/18 Range/Units 01:40 WBC 19.4 H D (4.3-11.1) K/mcL Hgb 12.8 (11.5-15.4) g/dL Hct 40.5 (35.3-44.9) % Plt Count 219 (140-400) K/mcL Neutrophils # 17.5 H (1.6-8.9) K/mcL BMP 02/18/18 02/19/18 15:41 01:40 Sodium 137 138 Potassium 3.9 4.4 Chloride 113 H 116 H Carbon Dioxide 15 L 15 L BUN 10 11 Creatinine 0.90 0.79 Glucose 231 H 167 H Calcium 8.6 8.6 Cardiac Enzymes 02/18/18 Range/Units 15:41 Troponin I < 0.03 (< 0.04) ng/mL Liver Function 02/19/18 Range/Units 01:40 Total Bilirubin 0.2 L (0.3-1.0) mg/dL AST 9 L (13-39) Units/L ALT 11 (7-52) Units/L Alkaline Phosphatase 88 (34-104) Units/L Albumin 3.9 (3.5-5.7) g/dL - ABG Interpretation ABG results: ABG ABG pH 7.35 pH Units (7.32-7.45) 02/18/18 08:35 ABG pCO2 22 mmHg (35-45) L 02/18/18 08:35 ABG pO2 127 mmHg (85-104) H 02/18/18 08:35 ABG O2 Saturation 99 % (95-98) H 02/18/18 08:35 PT/INR, D-dimer D-Dimer 226 ng/mLFEU (0-500) 02/17/18 20:42 - Attending Attestation I examined this patient and my medical decision-making was reviewed with the Resident Physician Dr. Nagel. I agree with the documented findings, disposition and treatment plan as described except to the extent set forth below. Ms. Amin is a 42 year old female with a past medical history of asthma, COPD, lobectomy secondary to pneumonia, and hypertension who presented to the ED with shortness of breath. Patient states that shortness of breath began 2 days ago with associated productive cough with green sputum. Her CXR showed atypical pneumonitis. Pt got admitted in the hospital and started on empirical abx Rocephin and Azithromycin. Pt states she is feeling little better today. Gen: A, A, O x3 Chest: Diminished BS b/l, moderate wheezing Heart: S1S2+ a/p 1. Acute hypoxic resp distress 2. Acute COPD exacerbation 3. Acute pneumonitis - mostly bacterial cont Rocephin + Azithromcyin Duoneb IV steroids Pulm suggested [facility] transfer for second opinion, however pt wanted to stay here only 4. Non aniongap metabolic acidosis 5. Renal tubular acidosis Could be hypovolemic and Aldactone induced too Improving Cont holding Aldactone IV hydration x 1 more bag close monitoring of BMP / Hco3
[2018-02-19] MEDS ORDERED: Azithromycin 250 MG TABLET PO SCH (09:00)
[2018-02-19] MEDS ORDERED: ALPRAZolam 1 MG TABLET PO SCH (09:00)
[2018-02-19] MEDS ORDERED: ALPRAZolam 1 MG TABLET PO ONE (09:00)
[2018-02-19] MEDS: GuaiFENesin/Dextromethorphan TABLET PO SCH ×2 (09:27→20:31)
[2018-02-19] MEDS: Sucralfate 1 GM TABLET PO SCH (20:30)
[2018-02-19] MEDS: Famotidine 20 MG TABLET PO SCH (20:31)
[2018-02-19] MEDS: FLUoxetine HCl 10 MG CAPSULE PO SCH (21:17)
[2018-02-19 23:37] LABS: Adenovirus Not Detected (Not Detect); Bordetella Pertussis Not Detected (Not Detect); Chlamydophila pneumoniae Not Detected (Not Detect); Coronavirus 229E Not Detected (Not Detect); Coronavirus HKU1 Not Detected (Not Detect); Coronavirus NL63 Not Detected (Not Detect); Coronavirus OC43 Not Detected (Not Detect); Human Metapneumovirus Not Detected (Not Detect); Human Rhinovirus/Enterovirus Not Detected (Not Detect); Influenza A Subtype 2009 H1 Not Detected (Not Detect); Influenza A Untypeable Not Detected (Not Detect); Influenza B Not Detected (Not Detect); Mycoplasma pneumoniae Not Detected (Not Detect); Parainfluenza Virus 1 Not Detected (Not Detect); Parainfluenza Virus 2 Not Detected (Not Detect); Parainfluenza Virus 3 Not Detected (Not Detect); Parainfluenza Virus 4 Not Detected (Not Detect); Respiratory Syncytial Virus Not Detected (Not Detect)
[2018-02-20 01:34] LABS: Basophils % 0.2 %; Hematocrit 40.4 % (35.3-44.9); Hemoglobin 12.9 g/dL (11.5-15.4); Immature Granulocytes % 1.5 % (0-4); Lymphocytes # 0.9 K/mcL (0.6-4.6); Lymphocytes % 4.8 %; Mean Corpuscular HGB Conc 31.9 g/dL (31.6-35.5); Mean Corpuscular Hemoglobin 28.7 pg (28.0-33.3); Mean Corpuscular Volume 89.8 fL (83.0-100.0); Monocytes # 0.5 K/mcL (0.0-1.3); Monocytes % 2.7 %; Neutrophils # 16.8 K/mcL (1.6-8.9); Platelet Count 195 K/mcL (140-400); Red Cell Distribution Width 15.6 % (11.5-14.5); Segmented Neutrophils % 90.8 %
[2018-02-20 01:57] LABS: BUN/Creatinine Ratio 19 (6-26); Blood Urea Nitrogen 14 mg/dL (6-20); Carbon Dioxide 16 mEq/L (23-29); Chloride 112 mEq/L (98-107); Glucose 163 mg/dL (70-105); Osmolality,Calculated 290 (280-300); Phosphorous 1.8 mg/dL (2.7-4.5); Potassium 3.9 mEq/L (3.5-5.1); Sodium 138 mEq/L (136-145); eGFR For African Americans > 60 (> 60); eGFR For Non-African Americans > 60 (> 60)
[2018-02-20] MEDS: Ipratropium Neb 0.5 MG NEBULIZER IH SCH ×6 (03:55→23:14)
[2018-02-20] MEDS: Levalbuterol Neb 1.25 MG/3 ML IH SCH ×6 (03:55→23:14)
[2018-02-20] MEDS: *HR* Heparin 5,000 UNIT/ML VIAL SQ SCH ×2 (05:29→18:08)
[2018-02-20] MEDS: methylPREDNISolone 125 MG/2 ML VIAL IVP SCH ×4 (05:29→23:46)
--- NOTE | 2018-02-20 08:42 | Internal Med Progress Note ---
<Joao Nagel - Last Filed: 02/20/18 11:44> Date of Encounter: 02/20/18 Time of Encounter: 08:40 - Assessment and plan (1) Acute pneumonitis Current Visit: Yes Status: Acute Assessment and plan: Azithromycin and Rocephin IV (Day 3) Resp infection panel negative CT chest revealed stable postsurgical and post therapeutic changes in the right chest with prior history of partial pneumonectomy. No acute abnormality or interval change to correlate to provided clinical symptoms. Continue Xopenex and Ipratropium Q4H Continue Solu-Medrol 60mg Q6H (patient is allergic to Prednisone) Continue supplemental oxygen, continuous pulse ox (2) Fibrotic lung diseases Current Visit: Yes Status: Chronic Assessment and plan: Pulmonology following, if she continues to have dyspnea with no clear etiology then she will need to be evaluated in another center where they have cardiopulmonary exercise testing and a second opinion, this can be done as an outpatient. (3) Acute and chronic respiratory failure with hypoxia Current Visit: Yes Status: Acute Assessment and plan: Patient with acute respiratory distress on exam, RA pulse ox <88% without supplemental oxygen Plan home O2 qualification study prior to discharge (4) Acute exacerbation of chronic obstructive airways disease Current Visit: Yes Status: Acute Assessment and plan: continue oxygen support, antibiotics, bronchdilators, Solu-Medrol 60mg Q6H - continuous pulse ox (5) Asthma Current Visit: Yes Status: Chronic Assessment and plan: See plan above. Qualifiers: Asthma severity: severe Asthma persistence: persistent Asthma complication type: unspecified Qualified Code(s): J45.50 - Severe persistent asthma, uncomplicated (6) Chest pain Current Visit: Yes Status: Acute Assessment and plan: PMH of HTN, obesity, former smoker. Atypical chest pain secondary to coughing. Troponins x3 were <0.03 - continue telemetry Patient reports significant MARISCAL while ambulating in hallway. Echo pending. Qualifiers: Chest pain type: unspecified Qualified Code(s): R07.9 - Chest pain, unspecified (7) HTN (hypertension) Current Visit: Yes Status: Acute Assessment and plan: Elevated BP upon arrival with systolic BP 150. Hydralazine 10mg prn Q6H. Qualifiers: Hypertension type: essential hypertension Qualified Code(s): I10 - Essential (primary) hypertension (8) Renal tubular acidosis type I Current Visit: Yes Status: Acute Assessment and plan: Could be hypovolemic and Aldactone induced too Held Aldactone Close monitoring of BMP / Hco2 IV hydration (9) Metabolic acidosis with respiratory alkalosis Current Visit: Yes Status: Acute Assessment and plan: Slowly improving CO3 level 16 today on BMP ABG reveals Primary metabolic acidosis, with superimposed respiratory alkalosis Urine pH 6.0 1/2 NS IVF Hold Diuretics (10) Hypokalemia Current Visit: Yes Status: Resolved Assessment and plan: Continue to monitor (11) Hypophosphatemia Current Visit: Yes Status: Acute Assessment and plan: Supplement Phos Continue to monitor (12) Morbid obesity with BMI of 45.0-49.9, adult Current Visit: Yes Status: Acute Assessment and plan: BMI 45.7 Lifestyle modification. (13) DVT prophylaxis Current Visit: Yes Status: Acute Assessment and plan: Heparin SQ (14) Bipolar 1 disorder Current Visit: Yes Status: Acute Assessment and plan: Continue home meds - Time Spent With Patient Total time spent is greater than 50% in coordination of care (as documented) at patient's floor/unit and/or counseling patient: - Subjective Interval history: Patient seen and examined resting comfortably in bed. Patient reports ongoing green sputum production today. SOB is improved with supplemental O2. Patient reports significant MARISCAL while ambulating in hallway. Echo pending. Patient encouraged to use incentive spirometry. Patient continues to refuse transfer to another facility at this time. - Constitutional Vitals: Temp Pulse Resp BP Pulse Ox 99.0 F 89 16 149/95 98 02/20/18 06:50 02/20/18 06:50 02/20/18 06:50 02/20/18 06:50 02/20/18 06:50 General appearance: Present: cooperative, A&O X 3, morbidly obese, pleasant, no acute distress, answers questions appropriately - Head Head exam: Present: atraumatic, normocephalic - Eye Eye exam: Present: PERRL, conjuntiva pink, sclera anicteric Pupils: Present: PERRL - ENT ENT exam: Present: mucous membranes dry, normal oropharynx - Neck Neck exam general surgery: Present: supple, trachea midline. Absent: lymphadenopathy - Respiratory Respiratory exam: Present: decreased breath sounds. Absent: accessory muscle use, CTAB, rales, rhonchi, wheezes - Cardiovascular Cardiovascular exam: Present: RRR, +S1, +S2. Absent: diastolic murmur, gallop, rubs, systolic murmur - GI/Abdominal GI/Abdominal exam: Present: normal bowel sounds, soft, no peritoneal signs. Absent: distended, tenderness - Extremities Exam Extremities exam: Present: warm, radial pulses palpable and symmetrical. Absent : calf tenderness, cyanotic, pedal edema - Back Exam Back exam: Present: normal inspection. Absent: paraspinal tenderness, tenderness - Neurological Exam Neurological exam: Present: CN II-XII intact, oriented X3, no focal deficits. Absent: pronater drift, facial droop, speech deficit - Psychiatric Psychiatric exam: Present: normal affect, normal mood - Skin Skin exam: Present: dry, intact, normal color, warm Internal Medicine: Result - Labs CBC & Chem 7: 02/20/18 01:14 02/20/18 01:14 Labs: Short CBC 02/20/18 Range/Units 01:14 WBC 18.5 H (4.3-11.1) K/mcL Hgb 12.9 (11.5-15.4) g/dL Hct 40.4 (35.3-44.9) % Plt Count 195 (140-400) K/mcL Neutrophils # 16.8 H (1.6-8.9) K/mcL BMP 02/20/18 01:14 Sodium 138 Potassium 3.9 Chloride 112 H Carbon Dioxide 16 L BUN 14 Creatinine 0.74 Glucose 163 H Calcium 9.0 - ABG Interpretation ABG results: ABG ABG pH 7.35 pH Units (7.32-7.45) 02/18/18 08:35 ABG pCO2 22 mmHg (35-45) L 02/18/18 08:35 ABG pO2 127 mmHg (85-104) H 02/18/18 08:35 ABG O2 Saturation 99 % (95-98) H 02/18/18 08:35 PT/INR, D-dimer D-Dimer 226 ng/mLFEU (0-500) 02/17/18 20:42 - Pulse Oximetry Interpretation Digit-Finger Pulse Oximetry Readin (On 2L O2 via NC) Consult Discharge Plan - Plan Referrals: Ignacio Chacon CNP [Family Provider] - Severino Mario, APURVA [Primary Care Provider] - <Bryan Montilla - Last Filed: 02/20/18 18:04> Date of Encounter: 02/20/18 - Assessment and plan (1) Acute exacerbation of chronic obstructive airways disease Current Visit: Yes Status: Acute (2) Chest pain Current Visit: Yes Status: Acute Qualifiers: Chest pain type: unspecified Qualified Code(s): R07.9 - Chest pain, unspecified (3) Asthma Current Visit: Yes Status: Chronic Qualifiers: Asthma severity: severe Asthma complication type: unspecified Qualified Code(s): J45.50 - Severe persistent asthma, uncomplicated (4) HTN (hypertension) Current Visit: Yes Status: Acute Qualifiers: Hypertension type: essential hypertension Qualified Code(s): I10 - Essential (primary) hypertension (5) DVT prophylaxis Current Visit: Yes Status: Acute (6) Fibrotic lung diseases Current Visit: Yes Status: Chronic (7) Acute and chronic respiratory failure with hypoxia Current Visit: Yes Status: Acute (8) Metabolic acidosis with respiratory alkalosis Current Visit: Yes Status: Acute (9) Acute pneumonitis Current Visit: Yes Status: Acute (10) Renal tubular acidosis type I Current Visit: Yes Status: Acute (11) Hypokalemia Current Visit: Yes Status: Resolved (12) Hypophosphatemia Current Visit: Yes Status: Acute (13) Morbid obesity with BMI of 45.0-49.9, adult Current Visit: Yes Status: Acute (14) Bipolar 1 disorder Current Visit: Yes Status: Acute - Time Spent With Patient Total time spent is greater than 50% in coordination of care (as documented) at patient's floor/unit and/or counseling patient: - Constitutional Vitals: Temp Pulse Resp BP Pulse Ox 98.1 F 86 17 156/87 96 02/20/18 15:54 02/20/18 15:54 02/20/18 15:54 02/20/18 15:54 02/20/18 15:54 Internal Medicine: Result - Labs CBC & Chem 7: 02/20/18 01:14 02/20/18 01:14 Labs: Short CBC 02/20/18 Range/Units 01:14 WBC 18.5 H (4.3-11.1) K/mcL Hgb 12.9 (11.5-15.4) g/dL Hct 40.4 (35.3-44.9) % Plt Count 195 (140-400) K/mcL Neutrophils # 16.8 H (1.6-8.9) K/mcL BMP 02/20/18 01:14 Sodium 138 Potassium 3.9 Chloride 112 H Carbon Dioxide 16 L BUN 14 Creatinine 0.74 Glucose 163 H Calcium 9.0 - ABG Interpretation ABG results: ABG ABG pH 7.35 pH Units (7.32-7.45) 02/18/18 08:35 ABG pCO2 22 mmHg (35-45) L 02/18/18 08:35 ABG pO2 127 mmHg (85-104) H 02/18/18 08:35 ABG O2 Saturation 99 % (95-98) H 02/18/18 08:35 PT/INR, D-dimer D-Dimer 226 ng/mLFEU (0-500) 02/17/18 20:42 - Impressions Impressions Chest X-Ray 02/20/18 11:00 IMPRESSION: Postsurgical change right hemithorax from prior right lower lobectomy. Patchy airspace opacity lower half right lung unchanged over 3 days but slightly more prominent over the past 2 years suggests atelectasis. Pneumonia felt to be less likely. D/ / Kvng Turcios MD / Kvng Turicos MD Interpreting Provider: Kvng Turcios MD - Attending Attestation I examined this patient and my medical decision-making was reviewed with the Resident Physician. I agree with the documented findings, disposition and treatment plan as described except to the extent set forth below.
[2018-02-20] MEDS ORDERED: CefTRIAXone 2,000 MG VIAL ONE (09:21)
[2018-02-20] MEDS: GuaiFENesin/Dextromethorphan TABLET PO SCH ×2 (09:26→21:02)
[2018-02-20] MEDS: Azithromycin 250 MG TABLET PO SCH (09:26)
[2018-02-20] MEDS: cefTRIAXone 2,000 MG in 0.9 % Sodium Chloride Mini Bag 100 ML IVPB SCH (09:27)
[2018-02-20] MEDS ORDERED: ALPRAZolam 1 MG TABLET PO ONE (12:58)
[2018-02-20] MEDS ORDERED: Ketorolac 30 MG/ML VIAL IVP ONE (16:37)
[2018-02-20] MEDS: Famotidine 20 MG TABLET PO SCH (21:02)
[2018-02-20] MEDS: Sucralfate 1 GM TABLET PO SCH (21:02)
[2018-02-20] MEDS: ALPRAZolam 1 MG TABLET PO SCH (21:43)
[2018-02-20] MEDS: FLUoxetine HCl 10 MG CAPSULE PO SCH (21:43)
[2018-02-20] MEDS ORDERED: traMADol 50 MG TABLET PO PRN (22:39)
--- NOTE | 2018-02-20 23:12 | Event Note ---
Date of Encounter: 02/20/18 Time of Encounter: 21:48 Ordered by patient's nurse DENNY Meza that patient was complaining of rash on her left forearm accompanied with pain. Doppler of left upper extremity was negative for DVT or SVT. CT of the forearm showed dorsal soft tissue swelling and skin thickening. No focal drainable fluid collection. No osseous abnormality. Went to see pt. who was resting in bed. Left arm has minimal edema and does not appear cellulitic on exam. Bruised area on left wrist from ABG. Pt. states that ice and heat did not help. Nurse reports pt. did not want pain medications earlier but when I mentioned adjusting pts. pain medications, pt. was amenable. D/t renal dysfunction, Tylenol 650 mg ordered for mild pain and Ultram 50 Q8HR PRN for moderate pain ordered. 25 mg IVP ONCE Benadryl ordered d/ t pt. receiving Solu-medrol and stating she has allergy to prednisone. Will continue to monitor overnight. A.M. provider to re-evaluate left forearm for signs of increasing edema/erythema.
[2018-02-21 01:44] LABS: Basophils % 0.2 %; Hematocrit 38.9 % (35.3-44.9); Hemoglobin 12.5 g/dL (11.5-15.4); Immature Granulocytes % 2.3 % (0-4); Lymphocytes # 0.7 K/mcL (0.6-4.6); Lymphocytes % 4.6 %; Mean Corpuscular HGB Conc 32.1 g/dL (31.6-35.5); Mean Corpuscular Hemoglobin 28.8 pg (28.0-33.3); Mean Corpuscular Volume 89.6 fL (83.0-100.0); Mean Platelet Volume 10.6 fL (9.4-12.4); Monocytes # 0.6 K/mcL (0.0-1.3); Monocytes % 3.9 %; Neutrophils # 14.4 K/mcL (1.6-8.9); Platelet Count 201 K/mcL (140-400); Red Blood Count 4.34 M/mcL (3.82-4.97); Red Cell Distribution Width 15.4 % (11.5-14.5)
[2018-02-21 02:03] LABS: BUN/Creatinine Ratio 20 (6-26); Blood Urea Nitrogen 16 mg/dL (6-20); Calcium 8.3 mg/dL (8.6-10.3); Carbon Dioxide 18 mEq/L (23-29); Chloride 112 mEq/L (98-107); Glucose 161 mg/dL (70-105); Magnesium 2.3 mg/dL (1.6-2.6); Osmolality,Calculated 293 (280-300); Phosphorous 2.3 mg/dL (2.7-4.5); Potassium 3.6 mEq/L (3.5-5.1); Sodium 139 mEq/L (136-145); eGFR For African Americans > 60 (> 60); eGFR For Non-African Americans > 60 (> 60)
[2018-02-21] MEDS: Ipratropium Neb 0.5 MG NEBULIZER IH SCH ×6 (03:23→23:09)
[2018-02-21] MEDS: Levalbuterol Neb 1.25 MG/3 ML IH SCH ×6 (03:23→23:09)
[2018-02-21] MEDS: *HR* Heparin 5,000 UNIT/ML VIAL SQ SCH ×2 (05:59→16:39)
[2018-02-21] MEDS: methylPREDNISolone 125 MG/2 ML VIAL IVP SCH ×3 (09:46→23:41)
[2018-02-21] MEDS: cefTRIAXone 2,000 MG in 0.9 % Sodium Chloride Mini Bag 100 ML IVPB SCH (09:47)
[2018-02-21] MEDS: GuaiFENesin/Dextromethorphan TABLET PO SCH ×2 (09:47→20:25)
[2018-02-21] MEDS: Azithromycin 250 MG TABLET PO SCH (09:48)
--- NOTE | 2018-02-21 14:17 | Internal Med Progress Note ---
<Barry Higgins - Last Filed: 02/21/18 14:46> Date of Encounter: 02/21/18 Time of Encounter: 09:10 - Assessment and plan (1) Acute exacerbation of chronic obstructive airways disease Current Visit: Yes Status: Acute Assessment and plan: continue oxygen support, antibiotics, bronchdilators, Solu-Medrol 60mg Q8H ( attempting to wean IV steroids as tolerated) - continuous pulse ox (2) Chest pain Current Visit: Yes Status: Acute Assessment and plan: PMH of HTN, obesity, former smoker. Atypical chest pain secondary to coughing. Troponins x3 were <0.03 Continue telemetry Patient reports significant MARISCAL while ambulating in hallway. Echo completed, pending cardiology's read. Update: echo report: LVEF 65-70%. Normal LV chamber size, wall thickness and function. Mild left ventricular diastolic dysfunction. Normal right ventricular structure and function. No evidence of pulmonary hypertension. No significant valvular dysfunction. Qualifiers: Chest pain type: unspecified Qualified Code(s): R07.9 - Chest pain, unspecified (3) Asthma Current Visit: Yes Status: Chronic Assessment and plan: See plan above. Qualifiers: Asthma severity: severe Asthma persistence: persistent Asthma complication type: unspecified Qualified Code(s): J45.50 - Severe persistent asthma, uncomplicated (4) HTN (hypertension) Current Visit: Yes Status: Acute Assessment and plan: Elevated BP upon arrival with systolic BP 150. Hydralazine 10mg prn Q6H. Continue to monitor, SBP this fluctuated from 130s to 150s. Qualifiers: Hypertension type: essential hypertension Qualified Code(s): I10 - Essential (primary) hypertension (5) Fibrotic lung diseases Current Visit: Yes Status: Chronic Assessment and plan: Pulmonology consulted, they recommended that she would need to be evaluated in another center where they have cardiopulmonary exercise testing or further workup could be done as an outpatient. (6) Acute and chronic respiratory failure with hypoxia Current Visit: Yes Status: Acute Assessment and plan: Patient has had acute respiratory distress previously on exam with RA pulse ox < 88% without supplemental oxygen Currently O2 saturation is 95% on 1.5L. May need O2 qualification study prior to discharge depending if patient can be weaned to RA or not. (7) Metabolic acidosis with respiratory alkalosis Current Visit: Yes Status: Acute Assessment and plan: Slowly improving CO3 level 18 today on BMP ABG on 02/18/18 Primary metabolic acidosis, with superimposed respiratory alkalosis Urine pH was 6.0 Hold Diuretics (8) Acute pneumonitis Current Visit: Yes Status: Acute Assessment and plan: Azithromycin and Rocephin IV (Day 4) Resp infection panel negative CT chest revealed stable postsurgical and post therapeutic changes in the right chest with prior history of partial pneumonectomy. No acute abnormality or interval change to correlate to provided clinical symptoms. Continue Xopenex and Ipratropium Q4H Continue Solu-Medrol 60mg Q8H, plan is to continue to wean as tolerated ( patient is allergic to Prednisone) Continue supplemental oxygen, continuous pulse ox (9) Renal tubular acidosis type I Current Visit: Yes Status: Acute Assessment and plan: Could be hypovolemic and Aldactone induced Held Aldactone Close monitoring of BMP / Hco2--slowly improving (10) Hypokalemia Current Visit: Yes Status: Resolved Assessment and plan: Continue to monitor (11) Hypophosphatemia Current Visit: Yes Status: Acute Assessment and plan: Phos supplement yesterday, improved from 1.8 to 2.3. Continue to monitor, may need additional supplementation. (12) Morbid obesity with BMI of 45.0-49.9, adult Current Visit: Yes Status: Acute Assessment and plan: BMI 45.7 Lifestyle modification. (13) DVT prophylaxis Current Visit: Yes Status: Acute Assessment and plan: Heparin SQ (14) Bipolar 1 disorder Current Visit: Yes Status: Acute Assessment and plan: Continue home meds - Time Spent With Patient Total time spent is greater than 50% in coordination of care (as documented) at patient's floor/unit and/or counseling patient: - Subjective Interval history: Patient seen and evaluated sitting up in bed watching a movie, no acute distress. Currently on 2LPM oxygen via NC. She notes that her breathing has been labored off and on today, though she notes it is slowly improving. She was evaluated last night for L forearm rash, doppler and CT negative last night. Patient notes the pain and rash disappeared overnight. - Constitutional Vitals: Temp Pulse Resp BP Pulse Ox 97.9 F 84 16 141/89 95 02/21/18 11:21 02/21/18 11:21 02/21/18 11:22 02/21/18 11:21 02/21/18 11:22 General appearance: Present: cooperative, A&O X 3, morbidly obese, pleasant, no acute distress, answers questions appropriately - Head Head exam: Present: atraumatic, normal inspection, normocephalic - Eye Eye exam: Present: EOMI, normal appearance, conjuntiva pink, sclera anicteric - ENT ENT exam: Present: mucous membranes moist - Neck Neck exam general surgery: Present: full ROM, normal inspection, supple - Respiratory Respiratory exam: Present: wheezes (minimal end expiratory wheezing bilaterally. ). Absent: accessory muscle use, respiratory distress - Cardiovascular Cardiovascular exam: Present: RRR, +S1, +S2. Absent: gallop, rubs - GI/Abdominal GI/Abdominal exam: Present: normal bowel sounds, soft. Absent: distended, guarding, tenderness - Extremities Exam Extremities exam: Present: warm, radial pulses palpable and symmetrical. Absent : cyanotic, pedal edema, tenderness - Back Exam Back exam: Present: normal inspection. Absent: paraspinal tenderness, tenderness - Neurological Exam Neurological exam: Present: alert, oriented X3, no focal deficits. Absent: speech deficit - Psychiatric Psychiatric exam: Present: normal affect, normal mood - Skin Skin exam: Present: dry, intact, warm. Absent: rash Additional comments: bruising noted from previous lab sticks, no rash or erythema present Internal Medicine: Result - Labs CBC & Chem 7: 02/21/18 01:17 02/21/18 01:17 Labs: Short CBC 02/21/18 Range/Units 01:17 WBC 16.2 H (4.3-11.1) K/mcL Hgb 12.5 (11.5-15.4) g/dL Hct 38.9 (35.3-44.9) % Plt Count 201 (140-400) K/mcL Neutrophils # 14.4 H (1.6-8.9) K/mcL BMP 02/21/18 01:17 Sodium 139 Potassium 3.6 Chloride 112 H Carbon Dioxide 18 L BUN 16 Creatinine 0.82 Glucose 161 H Calcium 8.3 L - ABG Interpretation ABG results: ABG ABG pH 7.35 pH Units (7.32-7.45) 02/18/18 08:35 ABG pCO2 22 mmHg (35-45) L 02/18/18 08:35 ABG pO2 127 mmHg (85-104) H 06/20/18 08:35 ABG O2 Saturation 99 % (95-98) H 02/18/18 08:35 PT/INR, D-dimer D-Dimer 226 ng/mLFEU (0-500) 02/17/18 20:42 - Impressions Impressions Echocardiogram 02/20/18 10:26 Impressions: LVEF 65-70%. Normal LV chamber size, wall thickness and function. Mild left ventricular diastolic dysfunction. Normal right ventricular structure and function. No evidence of pulmonary hypertension. No significant valvular dysfunction. Left Ventricular Wall Motion: Rest Echo Findings All wall segments showed normal motion. Findings: Study Quality * Technically adequate exam. ECG Findings * Normal sinus rhythm. Left Ventricle * LVEF 65-70%. * Normal LV chamber size, wall thickness and function. * Mild left ventricular diastolic dysfunction. Right Ventricle * Normal right ventricular structure and function. Left Atrium * Mildly dilated left atrium. Right Atrium * Normal right atrial size. Aortic Valve * Aortic valve not well visualized. * No aortic regurgitation. * No aortic stenosis. Mitral Valve * Normal mitral valve structure and function. * No mitral regurgitation. * No mitral stenosis. Tricuspid Valve * Normal tricuspid valve structure and function. * Trace tricuspid regurgitation. * No evidence of pulmonary hypertension. Pulmonic Valve * Normal pulmonic valve structure and function. * No pulmonic regurgitation. Aorta * Normally sized aortic root. Pericardium * The pericardium appears normal. IVC * The IVC is not well evaluated. Pulmonary Artery * Normal visualized portions of the main pulmonary artery. Chest X-Ray 02/20/18 11:00 IMPRESSION: Postsurgical change right hemithorax from prior right lower lobectomy. Patchy airspace opacity lower half right lung unchanged over 3 days but slightly more prominent over the past 2 years suggests atelectasis. Pneumonia felt to be less likely. D/ / Kvng Turcios MD / Kvng Turcios MD Interpreting Provider: Kvng Turcios MD Forearm CT 02/20/18 16:37 IMPRESSION: Dorsal soft tissue swelling and skin thickening. No focal drainable fluid collection. No osseous abnormality. D/ / 02/20/2018 19:51:36 Pascual Andrea MD / [email or web address] Interpreting Provider: Pascual Andrea MD Consult Discharge Plan - Plan Referrals: Ignacio Chacon [email or web address] [Family Provider] - Severino Mario CNP [Primary Care Provider] - <Bryan Montilla - Last Filed: 02/21/18 15:33> Date of Encounter: 02/21/18 - Assessment and plan (1) Acute exacerbation of chronic obstructive airways disease Current Visit: Yes Status: Acute (2) Chest pain Current Visit: Yes Status: Acute Qualifiers: Chest pain type: unspecified Qualified Code(s): R07.9 - Chest pain, unspecified (3) Asthma Current Visit: Yes Status: Chronic Qualifiers: Asthma severity: severe Asthma complication type: unspecified Qualified Code(s): J45.50 - Severe persistent asthma, uncomplicated (4) HTN (hypertension) Current Visit: Yes Status: Acute Qualifiers: Hypertension type: essential hypertension Qualified Code(s): I10 - Essential (primary) hypertension (5) DVT prophylaxis Current Visit: Yes Status: Acute (6) Fibrotic lung diseases Current Visit: Yes Status: Chronic (7) Acute and chronic respiratory failure with hypoxia Current Visit: Yes Status: Acute (8) Metabolic acidosis with respiratory alkalosis Current Visit: Yes Status: Acute (9) Acute pneumonitis Current Visit: Yes Status: Acute (10) Renal tubular acidosis type I Current Visit: Yes Status: Acute (11) Hypokalemia Current Visit: Yes Status: Resolved (12) Hypophosphatemia Current Visit: Yes Status: Acute (13) Morbid obesity with BMI of 45.0-49.9, adult Current Visit: Yes Status: Acute (14) Bipolar 1 disorder Current Visit: Yes Status: Acute - Time Spent With Patient Total time spent is greater than 50% in coordination of care (as documented) at patient's floor/unit and/or counseling patient: - Constitutional Vitals: Temp Pulse Resp BP Pulse Ox 97.9 F 84 16 141/89 95 02/21/18 11:21 02/21/18 11:21 02/21/18 11:22 02/21/18 11:21 02/21/18 11:22 Internal Medicine: Result - Labs CBC & Chem 7: 02/21/18 01:17 02/21/18 01:17 Labs: Short CBC 02/21/18 Range/Units 01:17 WBC 16.2 H (4.3-11.1) K/mcL Hgb 12.5 (11.5-15.4) g/dL Hct 38.9 (35.3-44.9) % Plt Count 201 (140-400) K/mcL Neutrophils # 14.4 H (1.6-8.9) K/mcL BMP 02/21/18 01:17 Sodium 139 Potassium 3.6 Chloride 112 H Carbon Dioxide 18 L BUN 16 Creatinine 0.82 Glucose 161 H Calcium 8.3 L - ABG Interpretation ABG results: ABG ABG pH 7.35 pH Units (7.32-7.45) 02/18/18 08:35 ABG pCO2 22 mmHg (35-45) L 02/18/18 08:35 ABG pO2 127 mmHg (85-104) H 02/18/18 08:35 ABG O2 Saturation 99 % (95-98) H 02/18/18 08:35 PT/INR, D-dimer D-Dimer 226 ng/mLFEU (0-500) 02/17/18 20:42 - Impressions Impressions Echocardiogram 02/20/18 10:26 Impressions: LVEF 65-70%. Normal LV chamber size, wall thickness and function. Mild left ventricular diastolic dysfunction. Normal right ventricular structure and function. No evidence of pulmonary hypertension. No significant valvular dysfunction. Left Ventricular Wall Motion: Rest Echo Findings All wall segments showed normal motion. Findings: Study Quality * Technically adequate exam. ECG Findings * Normal sinus rhythm. Left Ventricle * LVEF 65-70%. * Normal LV chamber size, wall thickness and function. * Mild left ventricular diastolic dysfunction. Right Ventricle * Normal right ventricular structure and function. Left Atrium * Mildly dilated left atrium. Right Atrium * Normal right atrial size. Aortic Valve * Aortic valve not well visualized. * No aortic regurgitation. * No aortic stenosis. Mitral Valve * Normal mitral valve structure and function. * No mitral regurgitation. * No mitral stenosis. Tricuspid Valve * Normal tricuspid valve structure and function. * Trace tricuspid regurgitation. * No evidence of pulmonary hypertension. Pulmonic Valve * Normal pulmonic valve structure and function. * No pulmonic regurgitation. Aorta * Normally sized aortic root. Pericardium * The pericardium appears normal. IVC * The IVC is not well evaluated. Pulmonary Artery * Normal visualized portions of the main pulmonary artery. Forearm CT 02/20/18 16:37 IMPRESSION: Dorsal soft tissue swelling and skin thickening. No focal drainable fluid collection. No osseous abnormality. D/ / 02/20/2018 19:51:36 Pascual Andrea MD / rema Interpreting Provider: Pascual Andrea MD - Attending Attestation I examined this patient and my medical decision-making was reviewed with the Resident Physician. I agree with the documented findings, disposition and treatment plan as described except to the extent set forth below.
[2018-02-21] MEDS: Sucralfate 1 GM TABLET PO SCH (20:25)
[2018-02-21] MEDS: Famotidine 20 MG TABLET PO SCH (20:25)
[2018-02-21] MEDS: FLUoxetine HCl 10 MG CAPSULE PO SCH (20:26)
[2018-02-21] MEDS: ALPRAZolam 1 MG TABLET PO SCH (20:26)
[2018-02-22] MEDS: Ipratropium Neb 0.5 MG NEBULIZER IH SCH ×3 (03:41→11:13)
[2018-02-22] MEDS: Levalbuterol Neb 1.25 MG/3 ML IH SCH ×3 (03:41→11:13)
[2018-02-22 05:11] LABS: Basophils % 0.2 %; Hematocrit 40.3 % (35.3-44.9); Immature Granulocytes % 2.5 % (0-4); Lymphocytes # 0.8 K/mcL (0.6-4.6); Mean Corpuscular HGB Conc 32.3 g/dL (31.6-35.5); Mean Corpuscular Hemoglobin 29.1 pg (28.0-33.3); Mean Corpuscular Volume 90.4 fL (83.0-100.0); Mean Platelet Volume 10.8 fL (9.4-12.4); Monocytes # 0.5 K/mcL (0.0-1.3); Monocytes % 3.2 %; Neutrophils # 12.2 K/mcL (1.6-8.9); Platelet Count 189 K/mcL (140-400); Red Blood Count 4.46 M/mcL (3.82-4.97); Red Cell Distribution Width 14.9 % (11.5-14.5); Segmented Neutrophils % 88.1 %
[2018-02-22 05:32] LABS: BUN/Creatinine Ratio 18 (6-26); Blood Urea Nitrogen 14 mg/dL (6-20); Calcium 8.2 mg/dL (8.6-10.3); Carbon Dioxide 22 mEq/L (23-29); Chloride 109 mEq/L (98-107); Glucose 156 mg/dL (70-105); Osmolality,Calculated 292 (280-300); Phosphorous 2.5 mg/dL (2.7-4.5); Potassium 3.6 mEq/L (3.5-5.1); Sodium 139 mEq/L (136-145); eGFR For African Americans > 60 (> 60); eGFR For Non-African Americans > 60 (> 60)
[2018-02-22] MEDS: *HR* Heparin 5,000 UNIT/ML VIAL SQ SCH (05:54)
[2018-02-22] MEDS ORDERED: methylPREDNISolone 125 MG/2 ML VIAL IVP SCH (08:15)
[2018-02-22] MEDS: cefTRIAXone 2,000 MG in 0.9 % Sodium Chloride Mini Bag 100 ML IVPB SCH (09:32)
[2018-02-22] MEDS: GuaiFENesin/Dextromethorphan TABLET PO SCH (09:33)
[2018-02-22] MEDS: Azithromycin 250 MG TABLET PO SCH (09:33)
--- NOTE | 2018-02-22 10:32 | Discharge Summary ---
<Barry Higgins - Last Filed: 02/22/18 13:24> - NOTES TO OUTPATIENT PROVIDER Notes to Outpatient Provider: Sent on steroid taper (decadron) and augmentin to complete 7 day abx course. REcommend close pulm f/u. Date of Encounter: 02/22/18 Time of Encounter: 09:00 - Discharge Diagnosis (1) Acute and chronic respiratory failure with hypoxia Priority: Primary Status: Acute (2) Acute exacerbation of chronic obstructive airways disease Priority: Secondary Status: Acute (3) Chest pain Priority: Secondary Status: Acute Qualifiers: Chest pain type: unspecified Qualified Code(s): R07.9 - Chest pain, unspecified (4) Asthma Priority: Secondary Status: Chronic Qualifiers: Asthma severity: severe Asthma persistence: persistent Asthma complication type: unspecified Qualified Code(s): J45.50 - Severe persistent asthma, uncomplicated (5) HTN (hypertension) Priority: Secondary Status: Acute Qualifiers: Hypertension type: essential hypertension Qualified Code(s): I10 - Essential (primary) hypertension (6) Fibrotic lung diseases Priority: Secondary Status: Chronic (7) Metabolic acidosis with respiratory alkalosis Priority: Secondary Status: Acute (8) Acute pneumonitis Priority: Secondary Status: Acute (9) Renal tubular acidosis type I Priority: Secondary Status: Acute (10) Hypokalemia Priority: Secondary Status: Resolved (11) Hypophosphatemia Priority: Secondary Status: Acute (12) Morbid obesity with BMI of 45.0-49.9, adult Priority: Secondary Status: Acute (13) DVT prophylaxis Priority: Secondary Status: Acute (14) Bipolar 1 disorder Priority: Secondary Status: Acute Hospital course: Ms. Amin is a 42 year old female with a past medical history of asthma, COPD, lobectomy secondary to pneumonia, and hypertension who presented to the ED with shortness of breath. Patient states that shortness of breath began 2 days prior to admission with associated productive cough with green sputum. Admits to associated hemoptysis and chest pain. Patient denies travel outside of [place] or visiting a correction. Chest pain is described as sharp with each breath and achy and she is not breathing. She states that the chest pain is constant does not radiate to her neck or arm but describes it as a chest pressure. Denies associated nausea, vomiting, or sweating. She has noticed increased swelling in her feet and hands over the last 2 weeks. She was last hospitalized in September for pneumonia. Admits to chills and diffuse weakness. Denies fever, abdominal pain, diarrhea, rash. Upon admission to the ED, patient was tachycardic 101, tachypnea 24, and hypertensive 150/100. patient's initial white blood cell count was 11.3, BNP 12 , d-dimer 226, Troponin < 0.03. Chest x-ray shows prominent reticular markings which can be seen in mild vascular congestion, atypical pneumonitis, or interstitial changes. Patient was given DuoNeb 1, Solu-Medrol and Aspirin in the ED. Patient was admitted to the floor for COPD exacerbation. Pulmonology consulted, noting that if she continud to have dyspnea with no clear etiology then she would need further evaluation by a center with cardiopulmonary exercise testing and possibly a second opinion. It was noted that current treatment with bronchodilators, steroids, and empiric antibiotics was reasonable to continue until patient was stable enough for discharge to pursue this secondary workup as an outpatient. During admission she did have atypical chest pain, troponins were negative and echo was normal with EF of 65-70%. Patient was treated with Azithromycin, rocephin, mucinex, atrovent, xopenex, and IV solumedidrol while inpatient. She notes resolution of chest pain, with intermittent increased work of breath. She has maintained good oxygenation. Plan today to see if patient qualifies for home oxygen and transition patient to PO medications. Patient states she feels comfortable going home today. Discharge discussed with: patient - Time Spent with Patient Total time spent providing and/or coordinating discharge services: Greater than 30 minutes (40mins) - Discharge Medications Prescriptions: Amoxicillin/Clavulanate [Augmentin] 875 mg PO BIDWM #4 tablet Dexamethasone [Decadron] 4 mg PO DAILY #36 tab GuaiFENesin/Dextromethorphan [Mucinex Dm] 1 each PO BID 5 Days #10 tab.er.12h Home Medications: Alprazolam XR [Xanax Xr] 2 mg PO HS 02/18/18 [History] Benztropine [Cogentin] 1 mg PO HS 02/18/18 [History] Ergocalciferol (VITAMIN D2) [Vitamin D2] 50,000 unit PO QWEEK 02/18/18 [History] Esomeprazole Magnesium [Nexium] 40 mg PO HS 02/18/18 [History] FLUoxetine HCl [Fluoxetine HCl] 30 mg PO HS 02/18/18 [History] Ferrous Sulfate [Iron] 325 mg PO HS 02/18/18 [History] Fluticasone/Vilanterol [Breo Ellipta 100-25 Mcg INH] 1 puff IH DAILY 02/18/18 [ History] Meloxicam [Mobic] 15 mg PO HS 02/18/18 [History] Montelukast [Singulair] 10 mg PO DAILY 02/18/18 [History] Omeprazole [PriLOSEC] 40 mg PO DAILY 02/18/18 [History] Quetiapine Fumarate [Quetiapine Fumarate ER] 800 mg PO HS 02/18/18 [History] Spironolactone [Aldactone] 50 mg PO HS 02/18/18 [History] Sucralfate [Carafate] 1 gm PO HS 02/18/18 [History] Topiramate [Topamax] 200 mg PO HS 02/18/18 [History] raNITIdine HCl [Ranitidine HCl] 300 mg PO HS 02/18/18 [History] Amoxicillin/Clavulanate [Augmentin] 875 mg PO BIDWM #4 tablet 02/22/18 [Rx] Dexamethasone [Decadron] 4 mg PO DAILY #36 tab 02/22/18 [Rx] GuaiFENesin/Dextromethorphan [Mucinex Dm] 1 each PO BID 5 Days #10 tab.er.12h [Rx] Allergies/Adverse Reactions: 3 Allergy/AdvReac Type Severity Reaction Status Date / Time Cortisone Allergy See Verified 02/18/18 07:57 Comments doxycycline Allergy See Verified 02/18/18 07:57 Comments prednisone Allergy See Verified 02/18/18 07:57 Comments Sulfa (Sulfonamide Allergy See Verified 02/18/18 07:57 Antibiotics) Comments Date of admission: 02/18/18 06:43 Primary care physician: Severino Mario CNP Consults: 02/18/18 12:05 Consult to Pulmonology [CONS] Routine Consulting Provider: [facility] Reason for Consult: SOB, COPD, known pulm outpatient Time Notified: 12:06 Call Completed: Yes Discharging clinician: Bryan Montilla Anticipated date of discharge: 02/22/18 - Constitutional Vitals: Temp Pulse Resp BP Pulse Ox 98.2 F 87 17 161/75 96 02/22/18 07:33 02/22/18 07:33 02/22/18 07:33 02/22/18 07:33 02/22/18 07:33 General appearance: Present: cooperative, A&O X 3, morbidly obese, pleasant, no acute distress, answers questions appropriately - Head Head exam: Present: atraumatic, normal inspection, normocephalic - Eye Eye exam: Present: EOMI, normal appearance, conjuntiva pink, sclera anicteric - ENT ENT exam: Present: mucous membranes moist - Neck Neck exam general surgery: Present: full ROM, normal inspection, supple - Respiratory Respiratory exam: Present: wheezes (minimal wheeze of right upper lobe). Absent : accessory muscle use, decreased breath sounds, rales, respiratory distress, rhonchi, stridor, tachypnea - Cardiovascular Cardiovascular exam: Present: RRR, +S1, +S2. Absent: diastolic murmur, gallop, rubs, systolic murmur - GI/Abdominal GI/Abdominal exam: Present: normal bowel sounds, soft. Absent: distended, guarding, tenderness - Extremities Exam Extremities exam: Present: warm, radial pulses palpable and symmetrical. Absent : cyanotic, pedal edema, tenderness - Neurological Exam Neurological exam: Present: alert, oriented X3, no focal deficits. Absent: speech deficit - Psychiatric Psychiatric exam: Present: normal affect, normal mood - Skin Skin exam: Present: dry, intact, normal color, warm. Absent: rash Additional comments: few scattered bruises on bilateral upper extremity from lab draws - Patient Status Disposition: Home, Self-Care Condition: Good Functional capacity at discharge: independent ambulation Overall status at discharge: patient is progressing back to baseline - Discharge Instructions Instructions: Chest Pain (DC) Follow Up With: Ignacio Chacon CNP [Family Provider] - Severino Mario CNP [Primary Care Provider] - Additional Instructions: Please complete your antibiotics and steroids. Please return or seek medical care if you develop new or worsening symptoms such as chest pain, difficulty breathing, dizziness, weakness. Please follow up with your Primary Care Provider within the next 5-7 days. Recommend outpatient follow up with pulmonology. - Diet and Activity Activity: resume usual activities as tolerated Diet: advance to your usual diet <Bryan Montilla - Last Filed: 02/22/18 16:11> Date of Encounter: 02/22/18 - Discharge Diagnosis (1) Acute exacerbation of chronic obstructive airways disease Status: Acute (2) Chest pain Status: Acute Qualifiers: Chest pain type: unspecified Qualified Code(s): R07.9 - Chest pain, unspecified (3) Asthma Status: Chronic Qualifiers: Asthma severity: severe Asthma complication type: unspecified Qualified Code(s): J45.50 - Severe persistent asthma, uncomplicated (4) HTN (hypertension) Status: Acute Qualifiers: Hypertension type: essential hypertension Qualified Code(s): I10 - Essential (primary) hypertension (5) DVT prophylaxis Status: Acute (6) Fibrotic lung diseases Status: Chronic (7) Acute and chronic respiratory failure with hypoxia Status: Acute (8) Metabolic acidosis with respiratory alkalosis Status: Acute (9) Acute pneumonitis Status: Acute (10) Renal tubular acidosis type I Status: Acute (11) Hypokalemia Status: Resolved (12) Hypophosphatemia Status: Acute (13) Morbid obesity with BMI of 45.0-49.9, adult Status: Acute (14) Bipolar 1 disorder Status: Acute Hospital course: Ms. Amin is a 42 year old female - Time Spent with Patient Total time spent providing and/or coordinating discharge services: Date of admission: 02/18/18 06:43 Primary care physician: Severino Mario CNP Consults: 02/18/18 12:05 Consult to Pulmonology [CONS] Routine Consulting Provider: [facility] Reason for Consult: SOB, COPD, known pulm outpatient Time Notified: 12:06 Call Completed: Yes - Constitutional Vitals: Temp Pulse Resp BP Pulse Ox 98.3 F 97 16 154/90 97 02/22/18 11:00 02/22/18 11:00 02/22/18 11:13 02/22/18 11:00 02/22/18 11:13 - Attending Attestation I examined this patient and my medical decision-making was reviewed with the Resident Physician. I agree with the documented findings, disposition and treatment plan as described except to the extent set forth below. Patient did not qulify for oxygen. She was in no acute distress today and she appears well. Patient needs a steroid taper for home. She states she is allergic to Prednisone. We have called her pharmacy and based on availability, we are prescribing dexamethason taper. Patient agrees to taking the taper as prescribed.
[2018-02-22 11:05] VITALS: BP 154/90
== END 2018-02-22 14:22 | disposition home or self-care (01) | DRG 193 ==
LOC: EMEROO 19:27 → 3NENU 19:27 → SUATTDRO 02-18 06:43
PROVIDERS: ADMIT Family Medicine; ATTEND Student in an Organized Health Care Education/Training Program